=== PATIENT | female | born 1980 | race Caucasian/White ===

== ENCOUNTER 2021-08-12 10:26 | Emergency (ER) | payer BC, SELFPAY ==
--- NOTE | ~2021-08-12 | CT_ITS ---
EXAMINATION: CTA BRAIN/CAROTID DATE: 08/12/2021 14:30 INDICATION: Right arm weakness and numbness TECHNIQUE: Computed tomographic angiography (CTA) of the head and neck was performed with 100 mL Omni paque-350 intravenous contrast. Multiplanar reconstructions and maximum intensity projection 3D-recon structions of the carotid arteries and of the intracranial arteries were created by the technologist on a separate workstation. Precontrast CT of the head was also obtained. Automated exposure control and iterative reconstruction technique were employed.The dose-length product was 1565.98 mGy-cm. COMPARISON: None. FINDINGS: Carotid arteries: There is no evident plaque with 0% stenosis of the right and left carotid bulbs relative to normal di stal artery lumen diameter (NASCET criteria). Cervical soft tissues are unremarkable. Mild emphysema at the bilateral upper lung zones. Minimal to mild cervical spondylosis. Head: No acute intracranial hemorrhage, acute infarction or abnormal extra axial fluid collection. Ventricl es are normal and symmetric. No mass/mass effect. Mild mucosal thickening in the bilateral ethmoid si nuses. The orbits and mastoid air cells are normal. No abnormally enhancing brain lesions. Intracranial arteries There is no hemodynamically significant stenosis in the vertebral, basilar and internal carotid arter ies. Vertebral arteries are codominant. There are no aneurysms identified. Both A1 and P1 segments a re patent. Cerebral arterial arborization appears symmetric. IMPRESSION: 1. 0% stenosis of the left and right carotid bulbs relative to normal distal artery lumen diameter (N ASCET criteria). 2. No acute intracranial process and normal CT angiogram of the head. Reviewed, dictated and finalized at location A. IMPRESSION: 1. 0% stenosis of the left and right carotid bulbs relative to normal distal ar krista lumen diameter (NASCET criteria). 2. No acute intracranial process and normal CT angiogram of the head.
--- NOTE | ~2021-08-12 | XR_ITS ---
EXAMINATION: XR chest 2V DATE: 08/12/2021 14:37 INDICATION: Right arm weakness TECHNIQUE: PA and lateral views of the chest are obtained. COMPARISON: 03/15/2011 FINDINGS: The lungs are free of acute opacities. There is no pleural effusion or pneumothorax. The ca rdiomediastinal silhouette is normal. There is mild thoracic spondylosis. IMPRESSION: 1. No acute cardiopulmonary abnormality. Reviewed, dictated and finalized at location B.
[2021-08-12 10:34] VITALS: BP 138/86; PULSE 87; RESP 14; TEMP 36.5; O2SAT 100
[2021-08-12 11:53] VITALS: BP 135/86; PULSE 63; RESP 19; O2SAT 100
--- NOTE | 2021-08-12 13:16 | ECG_ITS ---
Measurements Intervals [place] Rate: 54 P: 11 ME: 155 QRS: -48 QRSD: 94 T: 52 QT: 411 QTc: 391 Interpretive Statements SINUS BRADYCARDIA LEFT ANTERIOR FASCICULAR BLOCK [QRS AXIS <= -45, QR IN I, RS IN II] CONSIDER PREVIOUS SEPTAL MYOCARDIAL INFARCTION , OLD NO PREVIOUS ECG AVAILABLE FOR COMPARISON Electronically Signed On 08-12-2021 15:53:31 CDT by Pramod Morel M.D.
--- NOTE | 2021-08-12 13:19 | ED.NEUROSD ---
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 Patient states she woke up this morning and noticed the right hand was not working correctly. Patient unable to grasp objects. Patient with limited movement to thumb, second digit, and fifth digit and limited movement to wrist. Patient denies headache, slurred speech, or any other neurological issues. Medical history significant for surgery to right arm, depression, and anxiety. States she last saw her physician within the last couple months. Related Data Allergies Allergy/AdvReac Type Severity Reaction Status Date / Time prochlorperazine Allergy Intermediate Muscle Verified 08/12/21 15:19 Spasms Review of Systems Review of Systems: CONSTITUTIONAL: Denies fever, chills, or sweats. EYES: Denies visual changes, redness, or discharge. ENT: Denies rhinorrhea, congestion, sore throat, or otalgia. CARDIOVASCULAR: Denies chest pain, palpitations, or edema. RESPIRATORY: Denies cough or dyspnea. GASTROINTESTINAL: Denies abdominal pain, nausea, vomiting, or diarrhea. GENITOURINARY: Denies dysuria or hematuria. SKIN: Denies rash or itching. MUSCULOSKELETAL: Denies back pain, joint pain, or myalgia. NEUROLOGIC: Denies headache, numbness, dizziness, or weakness. Right hand weakness with numbness and tingling. PSYCHIATRIC: Denies anxiety or depression. Exam Narrative: GENERAL: Well-appearing, well-nourished, and in no acute distress. HEAD: Normocephalic, atraumatic. EYES: PERRLA and EOMI. ENT: Nares clear, no rhinorrhea or epistaxis. Mucous membranes moist. Oropharynx without tonsillar hypertrophy exudate or other lesions. Bilateral TMs pearly spain nonbulging NECK: Supple. No adenopathy or masses. No carotid bruits or JVD CHEST: Clear to auscultation. No respiratory distress. No wheezes rales or rhonchi HEART: Regular rate and rhythm. No murmur heard. Normal peripheral pulses. ABDOMEN: Soft, nontender, nondistended, normal active bowel sounds. EXTREMITIES: Normal range of motion. No edema. SKIN: Warm, dry, no rash. NEURO: Decreased sensation to right hand. Inability to move third and fourth digit. Second and fifth digit with very limited ability to flex and extend extend. Thumb with limited mobility to right thumb. Pain with palpation to dorsal side of wrist. Alert and oriented x3. PSYCH: Normal mood and affect. Course Course Emergency Course: Dr. Reynolds consulted after CT results obtained. Dr. Reynolds recommends EMG and MRI. Okay for outpatient follow-up. Patient updated on plan of care. Patient upset that no definitive answer for her issues today has been given. Patient aware of follow-up and instructed to call and make an appointment. Vital Signs Vital signs: Vital Signs Temperature 36.5 C 08/12/21 10:34 Pulse Rate 87 08/12/21 10:34 Respiratory Rate 14 08/12/21 10:34 Blood Pressure 138/86 08/12/21 10:34 Pulse Oximetry 100 08/12/21 10:34 Temperature 36.5 C 08/12/21 10:34 Pulse Rate 63 08/12/21 11:53 Respiratory Rate 19 08/12/21 11:53 Blood Pressure 135/86 08/12/21 11:53 Pulse Oximetry 100 08/12/21 11:53 MDM - Neuro Symptoms/Deficit MDM Narrative Medical decision making narrative: HPI as noted. Work-up as noted. CT and x-ray as noted. Consult neurology. In agreement with plan for outpatient follow-up. Differential Diagnosis Differential diagnosis: Likely carpal tunnel syndrome, cerebrovascular accident and other (Nerve compression) Medical Records Attestation: I reviewed the patient's medical records. Lab Data Attestation: I reviewed the patient's lab results. Result diagrams: 08/12/21 13:42
[2021-08-12 13:54] LABS: Basophils Absolute Auto 0.1 K/mm3 (0.0-0.1); Basophils Percent Auto 1.1 % (0.2-1.2); Eosinophils Absolute Auto 0.1 K/mm3 (0-0.3); Eosinophils Percent Auto 1.6 % (0-4.4); Hemoglobin 13.9 g/dL (12.0-15.0); Immature Granulocyte Absolute 0.04 K/mm3 (0.00-0.031); Immature Granulocyte Percent A 0.5 % (0-0.5); Lymphocytes Absolute Auto 2.57 K/mm3 (0.9-3.2); Lymphocytes Percent Auto 28.9 % (18.3-44.2); Mean Corpuscular HGB Conc 33.9 g/dl (32-36); Mean Corpuscular Hemoglobin 30.3 pg (26-34); Mean Corpuscular Volume 89.5 fl (80-100); Mean Platelet Volume 8.4 fl (7.4-10.4); Monocytes Absolute Auto 0.5 K/mm3 (0.1-0.6); Monocytes Percent Auto 5.9 % (2.6-8.5); Neutrophils Absolute Auto 5.5 K/mm3 (1.3-6.7); Platelet Count Result 334 k/mm3 (150-375); Red Blood Count 4.58 M/mm3 (4.2-5.4); Red Cell Distribution Width 13.3 % (11.5-14.5); White Blood Count 8.9 K/mm3 (4.5-10.0)
[2021-08-12 14:00] LABS: Add Urine Microscopic? YES; Appearance Urine Clear (Clear); Bacteria Urine Trace /hpf; Bilirubin Urine Negative (Negative); Blood Urine 1+ (Negative); Color Urine Yellow (Yellow); Glucose Urine UA Negative (Negative); Ketones Urine Negative (Negative); Leukocyte Esterase Ur Negative LEU/UL (Negative); Mucus Urine Rare /lpf; Nitrate Urine Negative (Negative); Protein Urine Negative (Negative); RBC Urine 0-2 /hpf (0-2); Squamous Epithelial Cell Urine Few /hpf (Few); Urobilinogen Urine Negative mg/dL (<2.0); WBC Urine 0-3 /hpf
[2021-08-12 14:03] LABS: Alanine Aminotransferase 21 U/L (4-35); Albumin Level 4.4 g/dL (3.5-5.1); Alkaline Phosphatase 75 U/L (38-126); Anion Gap 7 mmol/L (8-16); Aspartate Amino Transferase 31 U/L (14-36); Bilirubin,Total < 0.1 mg/dL (0.2-1.3); Blood Urea Nitrogen 5 mg/dL (7-17); Calcium 8.8 mg/dL (8.4-10.2); Carbon Dioxide 25 mmol/L (22-30); Chloride 106 mmol/L (98-107); Estimated CRCL calculation 93 ml/min; Estimated Glomerular Filt Rate > 60; Glucose 85 mg/dL (65-110); Potassium 3.9 mmol/L (3.4-5.0); Sodium 138 mmol/L (137-145)
[2021-08-12 14:04] LABS: Specific Grav Ur 1.004 (1.001-1.035)
[2021-08-12 14:07] LABS: INR 1.1; Prothrombin Time 13.3 Seconds (11.1-14.7)
[2021-08-12] MEDS: LORazepam (*CRX) 1 MG TABLET PO (15:21)
[2021-08-12] MEDS: KETOROLAC 30 MG/ML VIAL (*BKC) IV PUSH (15:21)
--- NOTE | 2021-08-12 15:53 | PC.NURSE ---
pt asking to leave AMA, pt agreeable to be discharged with follow up. pt somewhat irritable about remaining in pain.
== END 2021-08-12 15:55 | disposition home or self-care (01) ==
PROVIDERS: Emergency Provider Nurse Practitioner Family; PCP Physician Assistant
DX: R20.0 Anesthesia of skin (principal); R20.2 Paresthesia of skin; M79.641 Pain in right hand; R00.1 Bradycardia, unspecified; I44.4 Left anterior fascicular block; R94.31 Abnormal electrocardiogram [ECG] [EKG]
CPT/HCPCS: 36415; 70496; 70498; 71046; 80053; 81001; 81025; 85025; 85610; 85730; 93005; 96374; 99284; A9270; J1885; Q9967

== ENCOUNTER 2021-08-15 08:53 | Outpatient (CLI) | payer BC, SELFPAY ==
--- NOTE | 2021-08-15 11:30 | NEURO_ITS ---
Impression: # Complains of waking in the morning with wrist drop. # Normal nerve conduction study and needle/EMG except decreased motor unit potentials in Ext Indicis, Ext Digitorum, and Abd Poll Long. # Suggestive of right radial nerve compression against the external humerus. Nerve Conduction Studies Anti Sensory Summary Table Stim Site NR Peak (ms) P-T Amp (?V) Site1 Site2 Delta-P (ms) Dist (cm) Angel (m/s) Right Median Anti Sensory (2-3nd Digit) Wrist 2.8 76.0 Wrist 2-3nd Digit 2.8 14.0 50 Wrist 2.7 61.8 Wrist 2-3nd Digit 2.8 14.0 50 Right Radial Anti Sensory (Base 1st Digit) Wrist 1.8 32.4 Wrist Base 1st Digit 1.8 0.0 Right Ulnar Anti Sensory (5th Digit) Wrist 2.2 25.9 Wrist 5th Digit 2.2 14.0 64 Motor Summary Table Stim Site NR Onset (ms) O-P Amp (mV) Site1 Site2 Delta-0 (ms) Dist (cm) Angel (m/s) Right Median Motor (Abd Poll Brev) Wrist 3.0 7.3 Elbow Wrist 4.5 27.0 60 Elbow 7.5 5.4 Right Ulnar Motor (Abd Dig Minimi) Wrist 2.6 4.5 A Elbow Wrist 4.5 28.0 62 A Elbow 7.1 3.6 F Wave Studies NR F-Lat (ms) L-R F-Lat (ms) Right Median (Mrkrs) (Abd Poll Brev) 25.56 Right Ulnar (Mrkrs) (Abd Dig Min) 24.77 EMG Side Muscle Nerve Root Ins Act Fibs Amp Dur Recrt Comment Right 1stDorInt Ulnar C8-T1 Nml Nml Nml Nml Nml Right Ext Indicis Radial (Post Int) C7-8 Nml Nml Nml Nml Reduced Right Ext Digitorum Radial (Post Int) C7-8 Nml Nml Nml Nml Reduced Right BrachioRad Radial C5-6 Nml Nml Nml Nml Nml Right PronatorTeres Median C6-7 Nml Nml Nml Nml Nml Right Abd Poll Brev Median C8-T1 Nml Nml Nml Nml Nml Right Abd Poll Long Radial (Post Int) C7-8 Nml Nml Nml Nml Reduced MTDD
== END 2021-08-15 08:54 | disposition home or self-care (01) ==
LOC: ANHNEURO 08:56
PROVIDERS: PCP Physician Assistant; Visit Provider Psychiatry & Neurology Neurology
DX: R53.1 Weakness (principal)
CPT/HCPCS: 95886; 95909

== ENCOUNTER 2022-04-11 11:12 | Emergency (ER) | payer BC, SELFPAY ==
--- NOTE | ~2022-04-11 | CT_ITS ---
EXAMINATION: CT lumbar spine wo con DATE: 04/11/2022 14:08 INDICATION: Low back pain radiating down the left leg. TECHNIQUE: Computed tomography (CT) of the lumbar spine was performed without intravenous contrast. A utomated exposure control and iterative reconstruction technique were employed. The dose-length produ ct was 559.34 mGy-cm. COMPARISON: None FINDINGS: There is an intrauterine device in expected position. There is 14 degrees dextroscoliosis o f thoracolumbar spine. There are Schmorl's nodes at multiple levels. There is mildly decreased disc h eight at L4-L5 and L5-S1. The following disc levels are specifically discussed: L1-L2: The disc does not extend beyond the endplate margin. There is mild bilateral facet joint osteo arthritis. There is no neural foraminal stenosis. There is no central canal stenosis. L2-L3: The disc does not extend beyond the endplate margin. There is mild bilateral facet joint osteo arthritis. There is no neural foraminal stenosis. There is no central canal stenosis. L3-L4: The disc is bulging. There is mild bilateral facet joint osteoarthritis. There is mild left ne ural foraminal stenosis. There is mild central canal stenosis. L4-L5: The disc is bulging. There is moderate right and severe left facet joint osteoarthritis. There is moderate bilateral neural foraminal stenosis. There is mild central canal stenosis. L5-S1: The disc is bulging. There is mild bilateral facet joint osteoarthritis. There is mild bilater al neural foraminal stenosis. There is mild central canal stenosis. IMPRESSION: 1. Moderate spondylosis at L4-L5 and mild spondylosis at other levels. 2. Thoracolumbar dextroscoliosis. Reviewed, dictated and finalized at location A. [employer]
[2022-04-11 11:16] VITALS: BP 125/88; PULSE 96; RESP 18; TEMP 36.6; O2SAT 100
--- NOTE | 2022-04-11 13:44 | ED.BACK ---
HPI - Back Pain/Injury General Chief Complaint: Back Pain/Injury Stated Complaint: back pain Time Seen by Provider: 04/11/22 13:25 Source: patient Mode of arrival: ambulatory Limitations: no limitations History of Present Illness HPI Narrative: This is a 41-year-old female who presents emergency department for low back pain. Ongoing over the last 4 days. No recent injuries or trauma. Reports she went to bend down on Thursday and felt like something popped in her back. Since she has had constant low back pain. Sometimes it radiates into her left leg. Worse with movement. She saw her chiropractor the last couple of days with some relief. Reports the pain was worse again today which prompted her to be seen. She has not taken anything for pain today. Denies saddle anesthesia, or focal numbness or weakness. Related Data Allergies Allergy/AdvReac Type Severity Reaction Status Date / Time prochlorperazine Allergy Intermediate Muscle Verified 08/13/21 15:27 Spasms Review of Systems Review of Systems: CONSTITUTIONAL: Denies fever SKIN: Denies rash MUSCULOSKELETAL: Reports back pain, joint pain, and myalgia. NEUROLOGIC: Denies numbness, or weakness. All systems reviewed & are unremarkable except as noted in HPI and below PMFSH Past Medical History Medical History (Updated 04/11/22 @ 15:14 by Kirstie Gilbert PA-C) No active medical problems Social History Social History (Updated 04/11/22 @ 13:47 by Kirstie Gilbert PA-C) Substance use: never Exam Narrative: GENERAL: Well-appearing, well-nourished, and in no acute distress HEAD: Normocephalic, atraumatic. EYES: EOMI. CHEST: Clear to auscultation. No respiratory distress. No wheezes rales or rhonchi HEART: Regular rate and rhythm. No murmur heard. Normal peripheral pulses. BACK: No midline spinal tenderness EXTREMITIES: Normal range of motion. No edema. SKIN: Warm, dry, no rash. NEURO: No focal deficits. Alert and oriented x3. Normal gait PSYCH: Normal mood and affect Course Vital Signs Vital signs: Vital Signs Temperature 97.8 F 04/11/22 11:16 Pulse Rate 96 04/11/22 11:16 Respiratory Rate 18 04/11/22 11:16 Blood Pressure 125/88 04/11/22 11:16 Pulse Oximetry 100 04/11/22 11:16 Oxygen Delivery Room Air 04/11/22 11:16 Temperature 97.8 F 04/11/22 11:16 Pulse Rate 96 04/11/22 11:16 Respiratory Rate 18 04/11/22 11:16 Blood Pressure 125/88 04/11/22 11:16 Pulse Oximetry 100 04/11/22 11:16 Oxygen Delivery Room Air 04/11/22 11:16 MDM - Back Pain/Injury MDM Narrative Medical decision making narrative: Patient presents to the ER for low back pain ongoing over the last couple of days. Her vitals are normal. She denies any neurologic symptoms. No recent injuries or trauma. She is neurologically intact. CT scan of her lumbar spine shows moderate spondylosis at L4/L5. She was given a dose of Tylenol and Valium with modest relief. Did not wish to stay for any further treatment. Was instructed to have close follow up with her primary provider and will be given follow up with neurosurgery Imaging Data Radiologist's impression: ITS Impressions Lumbar Spine CT 04/11/22 14:12 IMPRESSION: 1. Moderate spondylosis at L4-L5 and mild spondylosis at other levels. 2. Thoracolumbar dextroscoliosis. Critical Care Time Critical Care Time Critical Care Time: No Discharge Plan Discharge Clinical Impression: Lumbar radiculopathy Patient Disposition: Home, Self-Care Condition: Stable Instructions: Lumbar Radiculopathy (ED) Additional Instructions: Return to the ER if you experience weakness, numbness, bowel/bladder incontinence, or any other symptoms that are concerning to you Rest, use ice/heat, take anti-inflammatories (Aleve, Ibuprofen, Naproxen, etc) or Tylenol as needed for pain as well as muscle relaxer (Flexeril) as needed for pain. Muscle relaxers can make you drowsy, do not drive if you take
[2022-04-11] MEDS: ACETAMINOPHEN 500 MG TABLET 1000 MG PO (13:50)
[2022-04-11] MEDS: diazePAM INJ (*CRX) 10 MG/2 ML SYRINGE 5 MG IM (13:50)
--- NOTE | 2022-04-11 13:54 | PC.NURSE ---
Patient reports she is in too much pain to provide urine sample at this time. CT notified.
[2022-04-11] MEDS: oxyCODONE HCL (*CRX) 5 MG TAB IR PO (15:44)
== END 2022-04-11 15:52 | disposition home or self-care (01) ==
PROVIDERS: Emergency Provider Emergency Medicine; PCP Physician Assistant
DX: M54.16 Radiculopathy, lumbar region (principal)
CPT/HCPCS: 72131; 96372; 99284; A9270; J3360

== ENCOUNTER 2023-05-26 12:14 | Outpatient (CLI) | payer BC, SELFPAY ==
--- NOTE | ~2023-05-26 | MR_ITS ---
MRI of the lumbar spine Clinical History: Back pain Technique: Axial T2-weighted images, and sagittal T1-weighted, T2-weighted, and T2 fat-sat images wer e acquired. Findings: There is no fracture or subluxation of the lumbar spine. Vertebral bodies maintain normal h eight and alignment. No suspicious bone no significant abnormality seen. At L1-L2, L2-L3, L3-L4, there is no disc bulge or herniation. There are minimal facet joint degenerat alvin changes at these levels. No spinal canal stenosis or neural foraminal narrowing at these levels. At L4-L5, there is diffuse disc bulge and advanced facet arthropathy. No moris central canal stenosis . There is moderate left neural foraminal narrowing, and advanced right neural foraminal narrowing. At L5-S1, there is mild disc bulge with mild facet arthropathy. No central canal stenosis. There is m ild right neural foraminal narrowing. Left neural foramen preserved. Paravertebral soft tissues are unremarkable. Impression: Moderate to advanced degenerative spondylosis at L4-L5. Mild degenerative change in the remainder of the lumbar spine. Reviewed, dictated and finalized at [facility]. ID NATURAL GAS PLANT OPERATOR Impression: Moderate to advanced degenerative spondylosis at L4-L5. Mild degenerative change in the remainder of the lumbar spine.
== END 2023-05-26 12:15 ==
DX: M54.41 Lumbago with sciatica, right side (principal); M47.896 Other spondylosis, lumbar region
CPT/HCPCS: 72148

== ENCOUNTER 2024-08-26 09:01 | Outpatient (CLI) | payer BC, SELFPAY ==
--- OUTSIDE RECORDS SUMMARY | 2024-08-26 09:15 | XMS_ITS | Encounter Summary ---
Author Organization [facility] Address [facility] [place] [address] Care Team Providers Care Timber Framer Helper Name Role Phone Hattie Ivory [facility] Primary Care Provider + Encounter Details Date Type Department Care Team (Late st Contact Info) Description 01/18/2024 [employer] Message Enc [facility] Medical Group Family & Internal Medicine [facility] [address] [place] [address] Mary, [facility] Provider Roge Social History Tobacco Use Types Packs/Day Years Used Date Smoking Tobacco: Every Day Cigarettes 1.5 10 Passive Smoke Exposure: Current Smokeless Tobacco: Never Alcohol Use Standard Drinks/Week Comments Yes 10 (1 standard drink = 0.6 oz pu re alcohol) Usually on weekends AUDIT-C Answer Date Recorded Frequency of Alcohol Consumption Never 12/16/2018 Average Number of Drinks Not on file 019 Frequency of Binge Drinking Not on file 11/23 PHQ-2 Answer Date Recorded Patient Health Questionnaire-2 Score 3 12/24/2023 Comments No Sex and Gender Information Value Date Recorded Sex Assigned at Not on file Legal Sex Female 5:23 PM CDT Gender Identity Female 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 * Adriana Johnson RN - 01/19/2024 10:39 AM CDT FYI documented in this encounter Plan of Treatment Not on file documented as of this encounter Visit Diagnoses Not on filedocumented in this encounter Additional Health Concerns Assessment Noted Time PHQ-9 Depression Total Score: 12 024 7:46 AM CDT documented as of this encounter Care Teams Timber Framer Helper Relationship Specialty Start Date End Date Hattie Ivory FNP-BC [address], [address] [place] [address] PCP - General Nurse Practitioner Family 03/23/23 documented as of this encounter
--- OUTSIDE RECORDS SUMMARY | 2024-08-26 09:15 | XMS_ITS | Encounter Summary ---
Author Organization [facility] Address [facility] [place] [address] Care Team Providers Care Major Case Detective Name Role Phone Holli Cedeño Primary Care Provider [phone] Hattie Ivory [facility] Primary Care Provider + Encounter Details Date Type Department Care Team (Late st Contact Info) Description 04/12/2022 Framed Datat Message Enc [facility] Medical Group Family & Internal Medicine [facility] [address] [place] [address] Holli Cedeño [place] [id number] [place] [address] [phone] bulging disks Social History Tobacco Use Types Packs/Day Years Used Date Smoking Tobacco: Every Day Cigarettes 1.5 10 Smokeless Tobacco: Never Alcohol Use Standard Drinks/Week Comments Yes 10 (1 standard drink = 0.6 oz pu re alcohol) Usually on weekends AUDIT-C Answer Date Recorded Frequency of Alcohol Consumption Never 12/16/2018 Average Number of Drinks Not on file 019 Frequency of Binge Drinking Not on file 11/23 PHQ-2 Answer Date Recorded PHQ-2 Score - If the patient scores above 3, please move on to questions 3-9 1 02/11/2022 Comments No Sex and Gender Information Value Date Recorded Sex Assigned at Not on file Legal Sex Female 5:23 PM CDT Gender Identity Female 06/17/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 No / Unsure 04/15/2022 8:04 AM IMPLANT POLISHER documented as of this encounter Plan of Treatment Not on file documented as of this encounter Visit Diagnoses Not on filedocumented in this encounter Additional Health Concerns Infection Onset Date Last Indicated Resolved Time COVID-19 Rule Out 07/24/2023 07/24/2023 07/24/2023 9:15 AM IMPLANT POLISHER Assessment Noted Time PHQ-9 Depression Total Score: 6 02/12/20 2:48 PM CDT documented as of this encounter Care Teams Major Case Detective Relationship Specialty Start Date [place] [address] [place] [address] PCP - General PHYSICIAN PORCELAIN ENAMEL SPRAYER 10/05/19 03/22/23 Hattie Ivory, NEURO PSYCH SALES SPECIALIST- [address], [address] [place] [address] PCP - General Nurse Practitioner Family 03/23/23 documented as of this encounter
--- OUTSIDE RECORDS SUMMARY | 2024-08-26 09:15 | XMS_ITS | Encounter Summary ---
Author Organization [facility] Address [facility] [place] [address] Care Team Providers Care Housekeeping Room Inspector Name Role Phone Holli Cedeño Primary Care Provider [phone] Hattie Ivory [facility] Primary Care Provider + Encounter Details Date Type Department Care Team (Late st Contact Info) Description 11/14/2022 [place] Message Enc [facility] Medical Group Family & Internal Medicine [facility] [address] [place] [address] Holli Cedeño [place] [id number] [place] [address] [phone] Pipe Line Gauger Social History Tobacco Use Types Packs/Day Years [...] Answer Date Recorded Patient Health Questionnaire-2 Score 0 08/12/2022 Comments No Sex and Gender Information Value Date Recorded Sex Assigned at Not on file Legal Sex Female 5:23 PM CDT Gender Identity Female 06/17/2021 1:51 PM CORNCOB PIPES ASSEMBLER Sexual Orientation Straight 06/17/2021 1: 51 PM CORNCOB PIPES ASSEMBLER COVID-19 Exposure Response Date Recorded In the last 10 days, have yo u been in contact with someone who was confirmed or suspected to have Coronavirus/COVID-19? No / Unsure 10/29/2022 9:08 AM CDT documented as of this encounter Plan of Treatment Not on file documented as of this encounter Visit Diagnoses Not on filedocumented in this encounter Additional Health Concerns Infection Onset Date Last Indicated Resolved Time COVID-19 Rule Out 07/24/2023 07/24/2023 07/24/2023 9:15 AM CORNCOB PIPES ASSEMBLER Assessment Noted Time PHQ-9 Depression Total Score: 6 02/12/20 22 2:48 PM CDT documented as of this encounter Care Teams Housekeeping Room Inspector Relationship Specialty Start Date [place] Date [place] [address] [place] [address] PCP - General PHYSICIAN [employer] FOOTBALL COACH 10/05/19 03/22/23 Hattie Ivory, HEARING THERAPIST- [address], [address] [place], [place] [id number] PCP - General Nurse Practitioner Family 03/23/23 documented as of this encounter
--- OUTSIDE RECORDS SUMMARY | 2024-08-26 09:15 | XMS_ITS | Encounter Summary ---
Author Organization [facility] Address [facility] [place] [address] Care Team Providers Care Human Service Coordinator Name Role Phone Holli Cedeño Primary Care Provider [phone] Hattie Ivory [facility] Primary Care Provider + Encounter Details Date Type Department Care Team (Late st Contact Info) Description 01/27/2022 My[employer] Message Enc [facility] Medical Group Family & Internal Medicine [facility] [address] [place] [address] Holli Cedeño [place] [phone] [place] [address] [phone] Mammogram results Social History Tobacco Use Types Packs/Day Years [...] 3, please move on to questions 3-9 4 12/11/2021 Comments No Sex and Gender Information Value Date Recorded Sex Assigned at Not on file Legal Sex Female 5:23 PM CDT Gender Identity Female 06/17/2021 1:51 PM PERMIT AGENT Sexual Orientation Straight 06/17/2021 1: 51 PM PERMIT AGENT COVID-19 Exposure Response Date Recorded In the last 10 days, have yo u been in contact with someone who was confirmed or suspected to have Coronavirus/COVID-19? No / Unsure 01/15/2022 2:40 PM CDT documented as of this encounter Plan of Treatment Not on file documented as of this encounter Visit Diagnoses Not on filedocumented in this encounter Additional Health Concerns Infection Onset Date Last Indicated Resolved Time COVID-19 Rule Out 07/24/2023 07/24/2023 07/24/2023 9:15 AM PERMIT AGENT Assessment Noted Time PHQ-9 Depression Total Score: 14 022 1:49 PM CDT documented as of this encounter Care Teams Human Service Coordinator Relationship Specialty Start Date [place] Hol[place] [address] [place] [address] PCP - General PHYSICIAN BUTTON BROACHER 10/05/19 03/22/23 Hattie Ivory, TELEPHONE MESSENGER- [address], [address] [place] [address] PCP - General Nurse Practitioner Family 03/23/23 documented as of this encounter
--- OUTSIDE RECORDS SUMMARY | 2024-08-26 09:15 | XMS_ITS | Encounter Summary ---
Author Organization [facility] Address [facility] [place] [address] Care Team Providers Care Door Frame Builder Name Role Phone Holli Cedeño Primary Care Provider [phone] Hattie Ivory [facility] Primary Care Provider + Encounter Details Date Type Department Care Team (Late st Contact Info) Description 02/24/2022 Any+Times Message Enc [facility] Medical Group Family & Internal Medicine [address] [address] [facility] Social History Tobacco Use Types Packs/Day Years [...] CDT Gender Identity Female 06/17/2021 1:51 PM LANDSCAPE PHOTOGRAPHER Sexual Orientation Straight 06/17/2021 1: 51 PM LANDSCAPE PHOTOGRAPHER COVID-19 Exposure Response Date Recorded In the last 10 days, have yo u been in contact with someone who was confirmed or suspected to have Coronavirus/COVID-19? No / Unsure 02/11/2022 2:29 PM CDT documented as of this encounter Plan of Treatment Not on file documented as of this encounter Visit Diagnoses Not on filedocumented in this encounter Additional Health Concerns Infection Onset Date Last Indicated Resolved Time COVID-19 Rule Out 07/24/2023 07/24/2023 07/24/2023 9:15 AM LANDSCAPE PHOTOGRAPHER Assessment Noted Time PHQ-9 Depression Total Score: 6 02/12/20 2:48 PM CDT documented as of this encounter Care Teams Door Frame Builder Relationship Specialty Start Date [place] Date Holli [place] [address] [place] [address] PCP - General PHYSICIAN BRIDGE CRANE OPERATOR 10/05/19 03/22/23 Hattie Ivory, CASING INSPECTOR- [address], [address] [place] [address] PCP - General Nurse Practitioner Family 03/23/23 documented as of this encounter
--- OUTSIDE RECORDS SUMMARY | 2024-08-26 09:15 | XMS_ITS | Clinical Summary ---
Author Organization [facility] Address [address] [place] [address] Care Team Providers Care Reverser Name Role Phone Jane Abraham MD Primary Care Provider [phone] Source Comments [facility],non-owned Affiliates and Associated Physician Practices is amultiple site organization consisting of ambulatory clinics and hospital sitesin [place], [place], [place] and [place]. This disclosure is being madepursuant to the Care Everywhere program and may not contain all information available regarding this patient. Last updated 18.[facility] Allergies No known active allergies Medications * Be aware that medications may not be up to date on this document. Alwaysverify current medications with the patient. Medication Sig Dispensed Refills Start Date End Date Status LORazepam (ATIVAN) 1 MG tablet Take 1 mg by mouth every 8 hours as needed. Active Social History Tobacco Use Types Packs/Day Years Used Date Smoking Tobacco: Every Day Cigarettes Tobacco Cessation:Ready to Q uit: No; Counseling Given: Yes Sex and Gender Information Value Date Recorded Sex Assigned at Not on file Gender Identity Not on file Sexual Orientation Not on file Last Filed Vital Signs Vital Sign Reading Time Taken Comments Blood Pressure 98/56 04/24/2011 11:12 AM BOBCAT OPERATOR Pulse 47 04/24/2011 11:12 AM BOBCAT OPERATOR Temperature 37 C (98.6 F) 04/24/2011 9:28 AM BOBCAT OPERATOR Respiratory Rate 19 04/24/2011 11:12 AM BOBCAT OPERATOR Oxygen Saturation 99% 04/24/2011 11:12 AM BOBCAT OPERATOR Inhaled Oxygen Concentration - - Weight 56.7 kg (125 lb) 04/24/2011 9:26 AM BOBCAT OPERATOR Height 166.4 cm (5' 5.5 ) 04/24/2011 9:26 AM BOBCAT OPERATOR Body Mass Index 20.48 04/24/2011 9:26 AM BOBCAT OPERATOR Plan of Treatment Health Maintenance Due Date Last Done Comments COLOGUARD (AGES 45-75) - COL ON CA SCREENING 1978 COLON MONITORING 1978 COLONOSCOPY - COLON CA SCREENING 1978 CT COLONOGRAPHY - COLON CA SCREENING 1978 Colorectal Cancer Screening 1978 FIT - COLON CA SCREENING 1978 FLEX SIG - COLON CA SCREENING 1978 LIPID TESTING 1978 MAMMOGRAM 1978 PAP SMEAR 1978 HIV SCREENING 1993 HEPATITIS C SCREENING 09/11/1996 DTAP/TDAP/TD VACCINES (1 - Tdap) 1997 HEPATITIS B VACCINE (1 of 3 - 19+ 3-dose series) 1997 COVID-19 VACCINE (1 - 2023-2 5 season) 2024 DEPRESSION SCREENING 05/25/2024 INFLUENZA VACCINE (Season Ended) 2025 ZOSTER VACCINE (1 of 2) 2028 HIB VACCINE Aged Out No longer eligi ble based on patient's age to complete this topic HPV VACCINE Aged Out No longer eligi ble based on patient's age to complete this topic MENINGOCOCCAL (Group B) VACC INE SHARED DECISION-MAKING Aged Out No longer eligibl e based on patient's age to complete this topic MENINGOCOCCAL GROUPS A/C/Y/W VACCINE Aged Out No longer eligible b ased on patient's age to complete this topic PNEUMOCOCCAL VACCINE Aged Out No long er eligible based on patient's age to complete this topic Care Teams Reverser Relationship Specialty Start Date End Date Jane Abraham MD [address] [place] [address] [phone] PCP - General 04/24/11
--- OUTSIDE RECORDS SUMMARY | 2024-08-26 09:15 | XMS_ITS | Encounter Summary ---
Author Organization [facility] Address [facility] [place] [address] Care Team Providers Care Yard Goods Salesperson Name Role Phone Hattie Ivory [facility] Primary Care Provider + Encounter Details Date Type Department Care Team (Late st Contact Info) Description 08/16/2023 plista Message [employer] [facility] Medical Group Family & Internal Medicine [facility] [address] [place] [address] [place] [address] [place] [address] Anxiety meds. Social History Tobacco Use Types Packs/Day Years [...] Date Recorded Patient Health Questionnaire-2 Score 0 07/24/2023 Comments No Sex and Gender Information Value Date Recorded Sex Assigned at Not on file Legal Sex Female 5:23 PM CDT Gender Identity Female 06/17/2021 1:51 PM PRODUCE ASSOCIATE Sexual Orientation Straight 06/17/2021 1: 51 PM PRODUCE ASSOCIATE documented as of this encounter Plan of Treatment Not on file documented as of this encounter Visit Diagnoses Not on filedocumented in this encounter Additional Health Concerns Assessment Noted Time PHQ-9 Depression Total Score: 7 05/13/20 23 9:31 AM PRODUCE ASSOCIATE documented as of this encounter Care Teams Yard Goods Salesperson Relationship Specialty Start Date End Date Hattie Ivory, SPORTS MEDICINE COORDINATOR- [address], [address] [place] [address] PCP - General Nurse Practitioner Family 03/23/23 documented as of this encounter
--- OUTSIDE RECORDS SUMMARY | 2024-08-26 09:15 | XMS_ITS | Encounter Summary ---
Author Organization [facility] Address [facility] [place] [address] Care Team Providers Care Seo Marketing Specialist Name Role Phone Holli Cedeño Primary Care Provider [phone] Hattie Ivory [facility] Primary Care Provider + Encounter Details Date Type Department Care Team (Late st Contact Info) Description 06/17/2021 [employer]iot Message Enc [facility] Medical Group Family & Internal Medicine [facility] [address] [place] [address] Holli Cedeño [place] [phone] [place] [address] [phone] Possible blood clot Social History Tobacco Use Types Packs/Day Years Used Date Smoking Tobacco: Every Day Cigarettes Smokeless Tobacco: Never Alcohol Use Standard Drinks/Week Comments No 0 (1 standard drink = 0.6 oz pur e alcohol) AUDIT-C Answer Date Recorded Frequency of Alcohol Consumption Never 12/16/2018 Average Number of Drinks Not on file 019 Frequency of Binge Drinking Not on file 11/23 PHQ-2 Answer Date Recorded PHQ-2 Score - If the patient scores above 3, please move on to questions 3-9 0 04/04/2021 Comments No Sex and Gender Information Value Date Recorded Sex Assigned at Not on file Legal Sex Female 5:23 PM CDT Gender Identity Female 06/17/2021 1:51 PM CREW FOREMAN Sexual Orientation Straight 06/17/2021 1: 51 PM CREW FOREMAN COVID-19 Exposure Response Date Recorded In the last month, have you been in contact with someone who was confirmed or suspected to have Coronavirus / COVID-19? No / Unsure 06/17/2021 4:04 PM CREW FOREMAN documented as of this encounter Progress Notes * Dee Rosa MA - 06/17/2021 3:27 PM CST Offered appointment to patient today, patient is unable to get anyone to cover her shift today. Patient aware to use ER if symptoms get worse. FOREMAN documented in this encounter Plan of Treatment Not on file documented as of this encounter Visit Diagnoses Not on filedocumented in this encounter Additional Health Concerns Infection Onset Date Last Indicated Resolved Time COVID-19 Rule Out 10/11/2021 10/11/2021 10/11/2021 3:16 PM CDT COVID-19 Rule Out 07/24/2023 07/24/2023 07/24/2023 9:15 AM CREW FOREMAN Assessment Noted Time PHQ-9 Depression Total Score: 0 04/04/20 21 7:48 AM CREW FOREMAN documented as of this encounter Care Teams Seo Marketing Specialist Relationship Specialty Start [place] Date [place] [address] [place] [address] PCP - General PHYSICIAN CREOSOTING ENGINEER 10/05/19 03/22/23 Hattie Ivory, PROCESS AUTOMATION ENGINEER- [address], [address] [place] [address] PCP - General Nurse Practitioner Family 03/23/23 documented as of this encounter
--- OUTSIDE RECORDS SUMMARY | 2024-08-26 09:15 | XMS_ITS | Encounter Summary ---
Author Organization [facility] Address [facility] [place] [address] Care Team Providers Care Cloth Trimmer Hand Name Role Phone Holli Cedeño Primary Care Provider [phone] Hattie Ivory [facility] Primary Care Provider + Encounter Details Date Type Department Care Team (Late st Contact Info) Description 02/11/2022 CNS Responset Message Enc [facility] Medical Group Family & Internal Medicine [facility] [address] [place] [address] Holli Cedeño [place] [phone] [place] [address] [phone] Meds Social History Tobacco Use Types Packs/Day Years [...] CDT Gender Identity Female 06/17/2021 1:51 PM KEG FILLER Sexual Orientation Straight 06/17/2021 1: 51 PM KEG FILLER COVID-19 Exposure Response Date Recorded In the last 10 days, have yo u been in contact with someone who was confirmed or suspected to have Coronavirus/COVID-19? No / Unsure 02/11/2022 2:29 PM CDT documented as of this encounter Progress Notes * Lorraine Garces LPN - 02/11/2022 10:15 AM CDT Pt called appt made with Dr. Fernandez for 02/11/22 documented in this encounter Plan of Treatment Not on file documented as of this encounter Visit Diagnoses Not on filedocumented in this encounter Additional Health Concerns Infection Onset Date Last Indicated Resolved Time COVID-19 Rule Out 07/24/2023 07/24/2023 07/24/2023 9:15 AM KEG FILLER Assessment Noted Time PHQ-9 Depression Total Score: 6 02/12/20 2:48 PM CDT documented as of this encounter Care Teams Cloth Trimmer Hand Relationship Specialty Start Date [place] Date [place] [address] [place] [address] PCP - General PHYSICIAN PROCTOLOGIST 10/05/19 03/22/23 Hattie Ivory, SHERLYN- [address], [address] [place] [address] PCP - General Nurse Practitioner Family 03/23/23 documented as of this encounter
--- OUTSIDE RECORDS SUMMARY | 2024-08-26 09:15 | XMS_ITS | Clinical Summary ---
Author Organization [facility] Address [facility] [place] [address] Care Team Providers Care Evp And Chief Operating Officer Name Role Phone Kayden Hankins [facility] Primary Care Provider + Allergies Active Allergy Reactions Criticality Noted Date Comments Prochlorperazine Dystonia Medium 12/16/2018 Medications levonorgestrel (MIRENA, 52 MG,) 20 MCG/24HR IUD 1 Intra Uterine Device by Intrauterine route once. Active albuterol sulfate HFA 108 (90 Base) MCG/ACT inhalerIndicat ions:Wheezing Inhale 2 puffs into the lungs every 6 (six) hours as needed for Wheezing. 18 g 5 01/28/20 24 Active azelastine (ASTELIN) 0.1 % nasal sprayIndicatio ns:Allergic rhinitis, unspecified seasonality, unspecified trigger,Acute recurrent maxillary sinusitis,Bron chitis 1-2 sprays per nostril, once or twice daily. 30 mL 2 01/28/20 24 Active amitriptyline (ELAVIL) 100 MG tabletIndicati ons:Psychophys iological insomnia Take 1 tablet (100 mg total) by mouth nightly at bedtime. 90 tablet 1 08/09/19 25 Active LORazepam (ATIVAN) 1 MG tabletIndicati ons:Generalize d anxiety disorder,Episo de of recurrent major depressive disorder, unspecified depression episode severity Take 1 tablet (1 mg total) by mouth every 8 (eight) hours as needed for Anxiety (Insomnia). FOR ANXIETY 30 tablet 2 08/09/19 25 Active montelukast (SINGULAIR) 10 MG tabletIndicati ons:Allergic rhinitis, unspecified seasonality, unspecified trigger Take 1 tablet (10 mg total) by mouth nightly at bedtime. at bedtime 90 tablet 3 08/09/19 25 Active busPIRone (BUSPAR) 15 MG tabletIndicati ons:Episode of recurrent major depressive disorder, unspecified depression episode severity Take 1 tablet by mouth twice daily 180 tablet 08/17/19 25 Active gabapentin (NEURONTIN) 300 MG capsule Take 1 capsule (300 mg total) by mouth 3 (three) times daily. 07/09/19 24 2024 Discontinued(P t. elected to discontinue med) LORazepam (ATIVAN) 1 MG tabletIndicati ons:Generalize d anxiety disorder,Episo de of recurrent major depressive disorder, unspecified depression episode severity Take 1 tablet (1 mg total) by mouth every 8 (eight) hours as needed. FOR ANXIETY 30 tablet 2 01/28/20 24 2024 Discontinued(R eorder) amitriptyline (ELAVIL) 50 MG tabletIndicati ons:Generalize d anxiety disorder,Psych ophysiological insomnia,Episo de of recurrent major depressive disorder, unspecified depression episode severity TAKE 1 TABLET BY MOUTH NIGHTLY AT BEDTIME 30 tablet 5 04/22/20 24 2024 Discontinued(D ose adjustment) montelukast (SINGULAIR) 10 MG tabletIndicati ons:Allergic rhinitis, unspecified seasonality, unspecified trigger Take 1 tablet (10 mg total) by mouth nightly at bedtime. at bedtime 30 tablet 5 04/22/20 24 2024 Discontinued(R eorder) busPIRone (BUSPAR) 15 MG tabletIndicati ons:Episode of recurrent major depressive disorder, unspecified depression episode severity Take 1 tablet by mouth twice daily 180 tablet 05/23/20 24 2024 Discontinued Active Problems Problem Noted Date Diagnosed Date Generalized anxiety disorder 01/27/2024 Psychophysiological insomnia 01/27/2024 Allergic rhinitis, unspecifi ed seasonality, unspecified trigger 01/27/2024 Low back pain with right-sided sciatica 05/14/20 23 History of abnormal cervical Papanicolaou smear 05/03/2023 Episode of recurrent major d epressive disorder, unspecified depression episode severity 12/21/2019 Patellofemoral pain syndrome 02/19/2015 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 Overview (08/31/2023): Infertility, female, associated with anovulation;Recorded Elsewhere: No Location: [facility] Source: EHR Chronic: N Practice ID: [id number] Billable Time: 04:00:00 PM Female infertility of tubal origin;Recorded Elsewhere: No Location: [facility] Source: EHR Chronic: N Practice ID: [id number] Billable Time: 09:00:00 AM Metrorrhagia 08/03/2012 Dyspareunia 06/28/2012 Menopausal symptom 06/27/2012 Overview (08/31/2023): Menopausal or female climacteric states;Recorded Elsewhere: No Location: [facility] Source: EHR Chronic: N Practice ID: [id number] Billable Time: 04:00:00 PM Other specified cardiac dysrhythmias 04/03/2011 Syncope and collapse 04/03/2011 Atypical squamous cells of u ndetermined significance (ASCUS) on Papanicolaou smear of cervix 10/14/2010 Resolved Problems Problem Noted Date Diagnosed Date Resolved Date Encounter for screening for malignant neoplasm of rectum 11/03/2018 09/10/2020 Pelvic and perineal pain 10/07/201705/2023 test negative 08/03/2012 08/0 05/2023 Screening for malignant neoplasm of cervix 08/27/2011 09/10/2020 Ill-defined intestinal infection 07/24/2011 12/24/2023 Encounters Date Type Department Care Team Description 08/08/2024 3:00 PM CDT Office Visit [facility] Medical Group Family & Internal Medicine [address] [address] Rachael Reagan NP Follow Up (Medication management); Fall (Patient had a fall 3 weeks and landed on her right hip. Still having pain and swelling ) 08/08/2024 Travel from Last 3 Months Immunizations Name Administration Dates Next Due Fluzone Adult - >Age 3 (Pref illed Syringe) 07/11/2020(Deferred: Patient Refused) [employer] ([email or web address]) COVID-19 AD26 VACCINE 0.5 ML IM SUSP 03/20/2021 Tdap (Adacel) 12/21/2019 Family History Medical History Relation Comments Depression Daughter 1 Depression Daughter 2 Arthritis Father Cancer Maternal Grandfather Cancer Maternal Grandmother Arthritis Mother Breast Cancer Neg Hx Relation Status Comments Daughter 1 Daughter 2 Father Maternal Grandfather Maternal Grandmother Mother Social History Tobacco Use Types Packs/Day Years Used Date Smoking Tobacco: Every Day Cigarettes 1.5 10 Passive Smoke Exposure: Current Smokeless Tobacco: Never Tobacco Cessation:Ready to Q uit: No; Counseling Given: Yes Alcohol Use Standard Drinks/Week Comments Yes 10 [...] CDT Gender Identity Female 06/17/2021 1:51 PM TETRYL BLENDER OPERATOR Sexual Orientation Straight 06/17/2021 1: 51 PM TETRYL BLENDER OPERATOR Last Filed Vital Signs Vital Sign Reading Time Taken Comments Blood Pressure 119/76 08/08/2024 3:05 PM CDT Pulse 84 08/08/2024 3:05 PM CDT Temperature 36.6 C (97.9 F) 08/08/2024 3:05 PM CDT Respiratory Rate 18 08/08/2024 3:05 PM CDT Oxygen Saturation 99% 08/08/2024 3:05 PM CDT Inhaled Oxygen Concentration - - Weight 85.1 kg (187 lb 9.6 oz) 08/08/2024 3:05 P M CDT Height 165.1 cm (5' 5 ) 08/08/2024 3:05 PM CDT Body Mass Index 31.22 08/08/2024 3:05 PM CDT Plan of Treatment Health Maintenance Due Date Last Done Comments Colorectal Cancer Screening Colonoscopy (10 Years) 1978 Annual Physical 1981 Hepatitis C 1996 Hepatitis B Vaccines (1 of 3 - 19+ 3-dose series) 1997 COVID-19 Vaccine (2 - season) 2024 03/20/2021 Influenza Adult (#1) 2024 PHQ-2 (Physician [facility] [place]) 05/25/2024 12/24/2023 Mammogram Screening 03/08/2026 03/08/2024, 01/15/2022, 11/07/2019, Additional history exists Cervical Cancer Screening Pap Smear (Age 30 to 64) Every 3 Years 05/16/2027 05/16/2024, 05/04/2023, 05/04/2023, Additional history exists Cervical Cancer Screening Pap with HPV Testing (Age 30 to 64) Every 5 Years 05/16/2029 05/16/2024, 05/04/2023, 05/04/2023, Additional history exists Cervical Cancer Screening with HPV 05/16/2029 DTaP, Tdap and Td Vaccines (2 - Td or Tdap) 12/20/2029 12/21/2019 Pneumococcal Vaccine: Pediatrics (0 to 5 Years) and At-Risk Patients (6 to 64 Years) (1 of 2 - PCV) 12/11/2041 Postponed from 1984 (Future Appointment) HPV Vaccines Aged Out No longer eligi ble based on patient's age to complete this topic Meningococcal B Vaccine Aged Out No l onger eligible based on patient's age to complete this topic Meningococcal Vaccine Aged Out No will reema eligible based on patient's age to complete this topic RSV Immunizations Under 20 Months Aged Out No longer eligible based on patient's age to complete this topic Procedures Procedure Name Priority Date/Time Associated Diagnosis Comments MG SCREENING W DAFNE DEVEN DIGI Routine 03/08/2024 3:39 PM CDT Encounter for screening mammogram for malignant neoplasm of breast OUTSIDE CYTOPATH CERV/VAG INTERPRET (PAP) Routine 08/29/2020 from Last 3 Months or Most Recently Relevant to Health Maintenance Results * MG SCREENING W DAFNE DEVEN DIGI (03/08/2024 3:39 PM CDT) Anatomical Region Laterality Modality Breast Bilateral Mammography 03/08/2024 4:15 PM CDT Impressions 03/08/2024 4:18 PM CDT ===== IMPRESSION: ===== 1. Stable mammographic appearance with no new findings to suggest malignancy in either breast. Assessment: ACR BI-RADS 1 - NEGATIVE Recommendation: 1:Routine Screening Bilateral Comments: Ordered By: KAYDEN HANKINS Interpreted By: Renato Shipley, 03/08/2024 4:15 PM Narrative 03/08/2024 4:18 PM CDT [facility] [address] [place] [address] EXAMINATION: Digital bilateral screening mammogram with 3-D tomosynthesis EXAM DATE/TIME: 03/08/2024 2:32 PM REASON FOR EXAM: breast cancer screening COMPARISON: 11/07/2019. 01/15/2022 Technique: Digital screening mammography of both breasts was performed in addition to 3-D Tomosynthesis technique. This study was read with the assistance of a computer-aided detection system. Tissue density: The breasts are almost entirely fatty. Findings: There is no new focal asymmetry, dominant mass lesion, area of skin thickening, or cluster of suspicious appearing calcifications in either breast to suggest malignancy. Kayden Hankins ELASTIC ATTACHER OVERLOCK-BC MAMMO Final Re sult * PAP SMEAR WITH HPV (08/29/2020) 08/29/2020 us Documents Scanned SCANNING Final Result [facility] ONBASE from Last 3 Months or Most Recently Relevant to Health Maintenance Insurance [facility] BLUE SHIELD Care Teams Evp And Chief Operating Officer Relationship Specialty Start Date End Date Kayden Hankins, ELASTIC ATTACHER OVERLOCK- [address], [address] [place] [address] PCP - General Nurse Practitioner Family 03/23/23
--- OUTSIDE RECORDS SUMMARY | 2024-08-26 09:15 | XMS_ITS | Encounter Summary ---
Author Organization [facility] Address [facility] [place] [address] Care Team Providers Care Counter Former Name Role Phone Hattie Ivory [facility] Primary Care Provider + Encounter Details Date Type Department Care Team (Late st Contact Info) Description 06/03/2023 [employer] Message [employer] [facility] Medical Group Family & Internal Medicine [facility] [id number] [place] [address] [facility] Provider records Social History Tobacco Use Types Packs/Day Years [...] Date Recorded Patient Health Questionnaire-2 Score 0 05/13/2023 Comments No Sex and Gender Information Value Date Recorded Sex Assigned at Not on file Legal Sex Female 5:23 PM CDT Gender Identity Female 06/17/2021 1:51 PM SUPERVISOR MAINSPRING FABRICATION Sexual Orientation Straight 06/17/2021 1: 51 PM SUPERVISOR MAINSPRING FABRICATION documented as of this encounter Plan of Treatment Not on file documented as of this encounter Visit Diagnoses Not on filedocumented in this encounter Additional Health Concerns Infection Onset Date Last Indicated Resolved Time COVID-19 Rule Out 07/24/2023 07/24/2023 07/24/2023 9:15 AM SUPERVISOR MAINSPRING FABRICATION Assessment Noted Time PHQ-9 Depression Total Score: 7 05/13/20 9:31 AM SUPERVISOR MAINSPRING FABRICATION documented as of this encounter Care Teams Counter Former Relationship Specialty Start Date End Date Hattie Ivory, DATA MANAGEMENT MANAGER- [address], [address] [place] [address] [phone] PCP - General Nurse Practitioner Family 03/23/23 documented as of this encounter
--- OUTSIDE RECORDS SUMMARY | 2024-08-26 09:15 | XMS_ITS | Encounter Summary ---
Author Organization [facility] Address [facility] [place] [address] Care Team Providers Care Car Mechanic Helper Name Role Phone Holli Cedeño Primary Care Provider [phone] Hattie Ivory [facility] Primary Care Provider + Encounter Details Date Type Department Care Team (Late st Contact Info) Description 04/09/2022 [employer] Message Enc [facility] Medical Group Family & Internal Medicine [facility] [address] [place] [address] Holli Cedeño [place] [phone] [place] [address] [phone] [email or web address] Social History Tobacco Use Types Packs/Day Years [...] CDT Gender Identity Female 06/17/2021 1:51 PM CASEY SAW OPERATOR Sexual Orientation Straight 06/17/2021 1: 51 PM CASEY SAW OPERATOR documented as of this encounter Plan of Treatment Not on file documented as of this encounter Visit Diagnoses Not on filedocumented in this encounter Additional Health Concerns Infection Onset Date Last Indicated Resolved Time COVID-19 Rule Out 07/24/2023 07/24/2023 07/24/2023 9:15 AM CASEY SAW OPERATOR Assessment Noted Time PHQ-9 Depression Total Score: 6 02/12/20 22 2:48 PM CDT documented as of this encounter Care Teams Car Mechanic Helper Relationship Specialty Start Date [place] Date Holli [place] [address] [place] [address] PCP - General PHYSICIAN TRANSFER TABLE OPERATOR 10/05/19 03/22/23 Hattie Ivory, DREDGE OR BARGE SHORE HAND- [id number], [address] [address] PCP - General Nurse Practitioner Family 03/23/23 documented as of this encounter
--- OUTSIDE RECORDS SUMMARY | 2024-08-26 09:15 | XMS_ITS | Encounter Summary ---
Author Organization [facility] Address [facility] [place] [address] Care Team Providers Care Cdl Program Coordinator Name Role Phone Holli Cedeño Primary Care Provider [phone] Hattie Ivory [facility] Primary Care Provider + Encounter Details Date Type Department Care Team (Late st Contact Info) Description 08/13/2021 [employer]St Message Enc [facility] Medical Group Family & Internal Medicine [facility] [address] [place] [address] Holli Cedeño [place] [phone] [place] [address] [phone] Right hand Social History Tobacco Use Types Packs/Day Years [...] CDT Gender Identity Female 06/17/2021 1:51 PM MEDICAL ESTHETICIAN Sexual Orientation Straight 06/17/2021 1 :51 PM MEDICAL ESTHETICIAN documented as of this encounter Plan of Treatment Not on file documented as of this encounter Visit Diagnoses Not on filedocumented in this encounter Additional Health Concerns Infection Onset Date Last Indicated Resolved Time COVID-19 Rule Out 10/11/2021 10/11/2021 10/11/2021 3:16 PM CDT COVID-19 Rule Out 07/24/2023 07/24/2023 07/24/2023 9:15 AM MEDICAL ESTHETICIAN Assessment Noted Time PHQ-9 Depression Total Score: 0 04/04/20 7:48 AM MEDICAL ESTHETICIAN documented as of this encounter Care Teams Cdl Program Coordinator Relationship Specialty Start Date [place] Date [place] [address] [place] [address] PCP - General PHYSICIAN EXPLORATION GEOLOGIST 10/05/19 03/22/23 Hattie Ivory, SERVICE ASSISTANT- [address] [address], [facility] [address] [place] [address] PCP - General Nurse Practitioner Family 03/23/23 documented as of this encounter
--- OUTSIDE RECORDS SUMMARY | 2024-08-26 09:15 | XMS_ITS | Encounter Summary ---
Author Organization [facility] Address [facility] [place] [address] Care Team Providers Care Fuel Oil Truck Driver Name Role Phone Hattie Ivory [facility] Primary Care Provider + Encounter Details Date Type Department Care Team (Late st Contact Info) Description 05/19/2023 [employer] Message [facility] Medical Group Family & Internal Medicine [facility] [phone] [place] [address] [facility] Provider MRI Social History Tobacco Use Types Packs/Day Years [...] CDT Gender Identity Female 06/17/2021 1:51 PM HERD TESTER Sexual Orientation Straight 06/17/2021 1: 51 PM HERD TESTER documented as of this encounter Plan of Treatment Not on file documented as of this encounter Visit Diagnoses Not on filedocumented in this encounter Additional Health Concerns Infection Onset Date Last Indicated Resolved Time COVID-19 Rule Out 07/24/2023 07/24/2023 07/24/2023 9:15 AM HERD TESTER Assessment Noted Time PHQ-9 Depression Total Score: 7 05/13/20 9:31 AM HERD TESTER documented as of this encounter Care Teams Fuel Oil Truck Driver Relationship Specialty Start Date End Date Hattie Ivory, DATA WAREHOUSE ADMINISTRATOR- [address], [address] [place] [address] [phone] PCP - General Nurse Practitioner Family 03/23/23 documented as of this encounter
== END 2024-08-26 09:02 | disposition home or self-care (01) ==
LOC: ANHSURGERY 09:08
PROVIDERS: Visit Provider Obstetrics & Gynecology
DX: N92.0 Excessive and frequent menstruation with regular cycle (principal)
CPT/HCPCS: 36415; 86850; 86900; 86901

== ENCOUNTER 2024-08-31 00:21 | Day surgery (SDC) | payer BC, SELFPAY ==
[2024-08-25 09:26] VITALS: BMI 30.7
--- NOTE | 2024-08-25 09:36 | PC.NURSE ---
Report to the Outpatient Waiting Room, entrance under the green pavilion located off [facility], at time 0600_ on date 08/31/24 _. Planned Procedure Time: 0730__.? Time changes happen often and if your time is changed the preop area will call you the afternoon before. - You and your visitor will be asked to self-screen and do not enter if you have any COVID symptoms. Please call surgeon if you need to reschedule. - A mask is optional within the hospital at this time. Patients may have clear liquids (water, carbonated beverages, clear teas, apple juice) until 3 hours prior to surgery with a maximum of 20 ounces. - No food from midnight until time of surgery and no smoking, or chewing tobacco (or any form of nicotine). No chewing gum, candy or mints. - Infants may have breast milk until 4 hours before surgery, infant formula 6 hours prior to surgery. - Children will be allowed to drink immediately following surgery.? If applicable, please bring a bottle or sippy cup to assist with drinking. Juice, water, soda, and popsicles are readily available.? For infants on formula, please bring formula the day of surgery.? Pacifiers are allowed. Take only the following medications with a SIP of water on the morning of surgery: NONE, LORAZEPAM IF NEEDED DO NOT STOP ANY OF YOUR OTHER PRESCRIPTION MEDICATIONS PRIOR TO SURGERY EXCEPT THE FOLLOWING Hold all vitamins and supplements for 3 days per anesthesiologist. Medications to discontinue per physician Date to take last dose Please no make-up, nail czech, hairspray, perfume, deodorant, or body powder the day of surgery.? No jewelry (including any body piercings) or valuables the day of surgery, leave them at home.? Please take a shower or bath the night before, or the morning of, surgery with an antibacterial soap.? Wear comfortable, loose fitting clothing.? Children are encouraged to wear pajamas. - Jewelry must be removed prior to entering the operating room.? Rings and piercings that are not removed may be cut off. - The hospital will not accept responsibility for valuables.? - Please leave all valuables, including medications, at home the day of surgery. If you are going home after surgery, a licensed driver guard must drive you home.? - NO public transportation without another adult if you receive anesthesia. - We recommend that an adult stay with you for 24 hours following discharge. - We also recommend that you do not drive, make important decision, drink alcoholic beverages, or take any drugs that were not prescribed by your health care provider for at least 24 hours after your discharge time. For Pediatric surgeries, we recommend two adults accompany the child home. Follow any additional instructions given to you from your surgeon. Telephone instructions given to _BEER__and asked if any additional questions and then verbalized understanding. Patient advised to call surgeon office or pre surgery nurse liaison [phone] if any additional questions.
[2024-08-31] VITALS (13 sets, daily range): BP systolic 111–152; BP diastolic 69–98; PULSE 69–100; RESP 14–22; TEMP 36.1–37.3; O2SAT 92–100
--- OUTSIDE RECORDS SUMMARY | 2024-08-31 00:24 | XMS_ITS | Encounter Summary ---
Author Organization [facility] Address [facility] [place] [address] Care Team Providers Care Shovel Handle Assembler Name Role Phone Holli Cedeño Primary Care Provider [phone] Hattie Ivory [facility] Primary Care Provider + Encounter Details Date Type Department Care Team (Late st Contact Info) Description 04/09/2022 Personal [employer] Message Enc [facility] Medical Group Family & Internal Medicine [facility] [address] [place] [address] Holli Cedeño [place] [phone] [place] [address] [phone] [email or web address] Social History Tobacco Use Types Packs/Day [...] CDT Gender Identity Female 06/17/2021 1:51 PM ASSOCIATE PRODUCT MANAGER Sexual Orientation Straight 06/17/2021 1: 51 PM ASSOCIATE PRODUCT MANAGER documented as of this encounter Plan of Treatment Not on file documented as of this encounter Visit Diagnoses Not on filedocumented in this encounter Additional Health Concerns Infection Onset Date Last Indicated Resolved Time COVID-19 Rule Out 07/24/2023 07/24/2023 07/24/2023 9:15 AM ASSOCIATE PRODUCT MANAGER Assessment Noted Time PHQ-9 Depression Total Score: 6 02/12/20 22 2:48 PM CDT documented as of this encounter Care Teams Shovel Handle Assembler Relationship Specialty Start Date [place] [address] [place] [address] PCP - General PHYSICIAN PAINTING WORKER 10/05/19 03/22/23 Hattie Ivory, ANALYST MARKET INTELLIGENCE- [address], [address] [address] PCP - General Nurse Practitioner Family 03/23/23 documented as of this encounter
--- OUTSIDE RECORDS SUMMARY | 2024-08-31 00:24 | XMS_ITS | Encounter Summary ---
Author Organization [facility] Address [facility] [place] [address] Care Team Providers Care Operator/Assistant Foreman Name Role Phone Holli Cedeño Primary Care Provider [phone] Hattie Ivory [facility] Primary Care Provider + Encounter Details Date Type Department Care Team (Late st Contact Info) Description 11/14/2022 [employer] Message Enc [facility] Medical Group Family & Internal Medicine [facility] [address] [place] [address] Holli Cedeño [place] [phone] [place] [address] [phone] Elastic Attacher Zigzag Social History Tobacco Use Types Packs/Day Years [...] CDT Gender Identity Female 06/17/2021 1:51 PM MOLDING LINE OPERATOR Sexual Orientation Straight 06/17/2021 1: 51 PM MOLDING LINE OPERATOR COVID-19 Exposure Response Date Recorded In the [...] Rule Out 07/24/2023 07/24/2023 07/24/2023 9:15 AM MOLDING LINE OPERATOR Assessment Noted Time PHQ-9 Depression Total Score: 6 02/12/20 22 2:48 PM CDT documented as of this encounter Care Teams Operator/Assistant Foreman Relationship Specialty Start [place] [address] [place] [address] PCP - General PHYSICIAN MEDICAL ADVISOR 10/05/19 03/22/23 Hattie Ivory, NIGHT FILLER- [address], [address] [place], [place] [phone] PCP - General Nurse Practitioner Family 03/23/23 documented as of this encounter
--- OUTSIDE RECORDS SUMMARY | 2024-08-31 00:24 | XMS_ITS | Encounter Summary ---
Author Organization [facility] Address [facility] [place] [address] Care Team Providers Care Weaver Axminster Name Role Phone Holli Cedeño Primary Care Provider [phone] [facility] Primary Care Provider + Encounter Details Date Type Department Care Team (Late st Contact Info) Description 02/11/2022 [employer] Message Enc [facility] Medical Group Family & Internal Medicine [facility] [address] [place] [address] Holli Cedeño [place] [phone] [place] [address] [phone] Meds Social History Tobacco Use Types Packs/Day [...] CDT Gender Identity Female 06/17/2021 1:51 PM CORE CUTTER Sexual Orientation Straight 06/17/2021 1: 51 PM CORE CUTTER COVID-19 Exposure Response Date Recorded In the [...] Rule Out 07/24/2023 07/24/2023 07/24/2023 9:15 AM CORE CUTTER Assessment Noted Time PHQ-9 Depression Total Score: 6 02/12/20 2:48 PM CDT documented as of this encounter Care Teams Weaver Axminster Relationship Specialty Start Date [place] Date [place] [address] [place] [address] PCP - General PHYSICIAN LABOR ECONOMICS PROFESSOR 10/05/19 03/22/23 Hattie Ivory, SHERLYN- [address] [address], [address] [place] [address] PCP - General Nurse Practitioner Family 03/23/23 documented as of this encounter
--- OUTSIDE RECORDS SUMMARY | 2024-08-31 00:24 | XMS_ITS | Encounter Summary ---
Author Organization [facility] Address [facility] [place] [address] Care Team Providers Care Automobile Service Advisor Name Role Phone Holli Cedeño Primary Care Provider [phone] Hattie Ivory [facility] Primary Care Provider + Encounter Details Date Type Department Care Team (Late st Contact Info) Description 04/12/2022 [employer] Message Enc [facility] Medical Group Family & Internal Medicine [facility] [address] [place] [address] Holli Cedeño [place] [phone] [place] [phone] 3 bulging disks Social History Tobacco Use [...] CDT Gender Identity Female 06/17/2021 1:51 PM PARKING GARAGE MANAGER Sexual Orientation Straight 06/17/2021 1: 51 PM PARKING GARAGE MANAGER COVID-19 Exposure Response Date Recorded In the last 10 days, have yo u been in contact with someone who was confirmed or suspected to have Coronavirus/COVID-19? No / Unsure 04/15/2022 8:04 AM PARKING GARAGE MANAGER documented as of this encounter Plan of Treatment Not on file documented as of this encounter Visit Diagnoses Not on filedocumented in this encounter Additional Health Concerns Infection Onset Date Last Indicated Resolved Time COVID-19 Rule Out 07/24/2023 07/24/2023 07/24/2023 9:15 AM PARKING GARAGE MANAGER Assessment Noted Time PHQ-9 Depression Total Score: 6 02/12/20 2:48 PM CDT documented as of this encounter Care Teams Automobile Service Advisor Relationship Specialty Start Date [place] Date [place] [address] [place] [address] PCP - General PHYSICIAN WATER GAS OPERATOR 10/05/19 03/22/23 Hattie Ivory, PARIMUTUEL TICKET SELLER- [address], [address] [place] [address] PCP - General Nurse Practitioner Family 03/23/23 documented as of this encounter
--- OUTSIDE RECORDS SUMMARY | 2024-08-31 00:24 | XMS_ITS | Encounter Summary ---
Author Organization [facility] Address [facility] [place] [address] Care Team Providers Care High School Director Name Role Phone Holli Cedeño Primary Care Provider [phone] Hattie Ivory [facility] Primary Care Provider + Encounter Details Date Type Department Care Team (Late st Contact Info) Description 01/27/2022 SpiceCSMt Message Enc [facility] Medical Group Family & Internal Medicine [facility] [address] [place] [address] Holli Cedeño [place] [id number] [place] [address] [phone] Mammogram results Social History Tobacco Use Types [...] CDT Gender Identity Female 06/17/2021 1:51 PM DRY DRUG WORKER Sexual Orientation Straight 06/17/2021 1: 51 PM DRY DRUG WORKER COVID-19 Exposure Response Date Recorded In the [...] Rule Out 07/24/2023 07/24/2023 07/24/2023 9:15 AM DRY DRUG WORKER Assessment Noted Time PHQ-9 Depression Total Score: 14 022 1:49 PM CDT documented as of this encounter Care Teams High School Director Relationship Specialty Start [place] [address] [place] [address] PCP - General PHYSICIAN CREDIT UNION TELLER 10/05/19 03/22/23 Hattie Ivory, AIRCRAFT STEEL FABRICATOR- [address], [address] [place] [address] PCP - General Nurse Practitioner Family 03/23/23 documented as of this encounter
--- OUTSIDE RECORDS SUMMARY | 2024-08-31 00:24 | XMS_ITS | Encounter Summary ---
Author Organization [facility] Address [facility] [place] [address] Care Team Providers Care Internet Systems Administrator Name Role Phone Holli Cedeño Primary Care Provider [phone] Hattie Ivory [facility] Primary Care Provider + Encounter Details Date Type Department Care Team (Late st Contact Info) Description 02/24/2022 mEgo Message Enc [facility] Medical Group Family & Internal Medicine [address] [address] [facility] Provider Appointment Social History Tobacco Use Types [...] CDT Gender Identity Female 06/17/2021 1:51 PM JUNIOR ACCOUNTANT Sexual Orientation Straight 06/17/2021 1: 51 PM JUNIOR ACCOUNTANT COVID-19 Exposure Response Date Recorded In the [...] Rule Out 07/24/2023 07/24/2023 07/24/2023 9:15 AM JUNIOR ACCOUNTANT Assessment Noted Time PHQ-9 Depression Total Score: 6 02/12/20 2:48 PM CDT documented as of this encounter Care Teams Internet Systems Administrator Relationship Specialty Start [place] [address] [place] [address] PCP - General PHYSICIAN STOCK TRANSFER CLERK 10/05/19 03/22/23 Hattie Ivory, SWIMMER- [address], [address] [place] [address] PCP - General Nurse Practitioner Family 03/23/23 documented as of this encounter
--- OUTSIDE RECORDS SUMMARY | 2024-08-31 00:24 | XMS_ITS | Clinical Summary ---
Author Organization [facility] Address [address] [place] [address] Care Team Providers Care Bag Machine Adjuster Name Role Phone Jaen Abraham MD Primary Care Provider Source Comments [facility],non-owned Affiliates and Associated Physician Practices is amultiple site organization consisting of ambulatory clinics and hospital sitesin [place], [place], [place] and [place]. This disclosure is being madepursuant to the Care Everywhere program and may not contain all information available regarding this patient. Last updated 18.[facility] Allergies No known active allergies Medications * [...] Comments Blood Pressure 98/56 04/24/2011 11:12 AM MEDICAL ESTHETICIAN Pulse 47 04/24/2011 11:12 AM MEDICAL ESTHETICIAN Temperature 37 C (98.6 F) 04/24/2011 9:28 AM MEDICAL ESTHETICIAN Respiratory Rate 19 04/24/2011 11:12 AM MEDICAL ESTHETICIAN Oxygen Saturation 99% 04/24/2011 11:12 AM MEDICAL ESTHETICIAN Inhaled Oxygen Concentration - - Weight 56.7 kg (125 lb) 04/24/2011 9:26 AM MEDICAL ESTHETICIAN Height 166.4 cm (5' 5.5 ) 04/24/2011 9:26 AM MEDICAL ESTHETICIAN Body Mass Index 20.48 04/24/2011 9:26 AM MEDICAL ESTHETICIAN Plan of Treatment Health Maintenance Due Date [...] age to complete this topic Care Teams Bag Machine Adjuster Relationship Specialty Start Date End Date Jane Abraham MD [address] [place] [phone] PCP - General 04/24/11
--- OUTSIDE RECORDS SUMMARY | 2024-08-31 00:24 | XMS_ITS | Data Portability ---
Author Organization [facility] Address [address] [place] [address] [place] [address] Care Team Providers Care Telephone Plant Power Operator Name Role Phone [facility] Primary Care Provider Assessment Encounter Date Assessment Date Assessment LastModified by Organization Details LastModified Time 05/16/2024 05/16/2024 Annual gynecological exam performed. Patient will come back in a year unless there are new symptoms. [email or web address] Not available 05/16/2024 15:23:53 Plan of Treatment Reminders Order Date Submit Date Provider Last Modified By Organization Details Last Modified Time Details Appointments Robotic [facility] 2024 07:30A Lyssa JOSEPH MD Not available Not available Not available SURG POST OP 2024 08:30A Lyssa JOSEPH MD Not available Not available Not available Lab test, urine 2022 023 [email or web address], [address], [place], [address], 05/20/2023 10:09:00 Referral None recorded. Procedures None recorded. Surgeries total hysterect kuldeep, laparosco pic, with bilateral salpingo- oophorect kuldeep (SURG) 2024 025 [email or web address] [facility] [address], [place], [address], 06/27/2024 22:29:41 Imaging None recorded. Medication Orders None recorded. Patient TargetsNo targets recorded. Patient InstructionsNo instructions recorded. Reason for Referral None Reported. Results Created Date Observation Date Name Description Value Unit Range Abnormal Flag Note LastModifiedBy Organization Detail LastModifiedTime 05/04/20 23 05/04/2023 IMAGE GUIDE D PAP AND HPV REGAR DLESS image guided Pap, HPV regardless of Pap result SEE RESULT S BELOW abnormal CASE REPOR T: Cytol ogy Gynec ologi fabien Repor t Case: [id number] Autho rodneygabino dianna Provi norberto: Jacque Raman, XIOMY Garcia cted: 05/04 1653 Order ing Locat ion: [place] Patho log[facility] Recei beryl: 05/05 0850 First Scree n: Leila Burrell Patho logis t: Mehul Malik MD Speci men: Slime haas Pap - Image d, Cervi x STATE MENT OF ADEQU ACY: Satis facto ry for evalu ation Trans forma tion zone compo nent prese nt FINAL DIAGN OSIS: Epith elial Cell Abnor malit y, Squam ous Cell: Low Grade Squam ous Intra epith elial Lesio n (LSIL ). Shift in [place] sugge stive of bacte rial vagin osis. Elect jacki dennis by Mehul Malik MD on 05/07 at 12:11 PM ----- ----- ----- ----- ----- ----- ----- ----- ----- ----- ----- ----- ----- ----- ----- ----- ----- ---- HPV RESUL TS: HPV mRNA E6/E7 : Posit alvin - HPV mRNA Detec mami HPV GENOT YPE 16 (GEORGE) : Not Detec mami HPV GENOT YPE 18/45 (GEORGE) : Detec mami NOTE: This high risk HPV mRNA assay detec ts fourt een high- risk HPV types (16, 18, 31, 33, 35, 39, 45, 51, 52, 56, 58, 59, 66, 68) witho ut diffe renti ation . This assay can diffe renti ate HPV 16 from HPV 18/45 , but does not diffe renti ate betwe en HPV 18 and HPV 45. A negat alvin HPV 16, 18/45 genot ype assay resul t does not exclu de the possi bilit y of cytol ogic abnor malit ies or of futur e or under lying RUDOLPH 1, RUDOLPH 3 or cance r. COMME NT: This speci men was revie wed by a Cytot echno logis t and/o r Patho logis t (as indic ated in this repor t) after evalu ation using the Thinp rep Imagi ng Syste m. CLINI FABIEN INFOR MATIO N: Menst rual Statu s: LMP (if appli cable ): 2022 Clini fabien Histo ry/Pr eviou s Pap: Type of Neopl shantell (if appli cable ): Signi fican t Clini fabien Findi ngs: Other Histo ry: Hormo jana (if appli cable ): SUGGE STED FOLLO W-UP: Follo w up as warra nted, based on curre nt guide lines and indiv idual patie nt consi derat ions. Not Available [facility] ([facility]) [address], [place], [address], 05/07/2023 13:15:11 05/04/20 23 05/04/2023 TRICH OMONA S VAGIN KADY (RRNA ) trichomonas vaginalis ribosomal RNA (rrna) NEGATI VE negati ve Not Available [facility] ([facility]) [address], [place], [address], 05/07/2023 13:15:12 05/04/20 23 05/04/2023 CT/GC (GEORGE) , THINP REP VIAL chlamydia trachomatis, PCR NEGATI VE negati ve Not Available [facility] ([facility]) [address], [place], [address], 05/07/2023 13:15:12 05/04/20 23 05/04/2023 CT/GC (GEORGE) , THINP REP VIAL neisseria gonorrhoeae, PCR NEGATI VE negati ve Not Available [facility] ([facility]) [address], [place], [address], 05/07/2023 13:15:12 05/20/20 23 05/26/2023 BIOPS Y, ENDOC ERVIC AL endocervical curettage histology Negati ve normal Not Available [facility] ([facility]) [address] , [place], [address], 05/26/2023 09:20:19 05/20/20 23 05/26/2023 BIOPS Y, ENDOC ERVIC AL results (A1) ENDOC ERVIX GROSS ING INFOR MATIO N: Recei beryl in forma greg on a soft ecc brush is a 0.2 cm aggre gate of pink- tinge d mucoi d/fib rinou s mater ial. Speci men is filte red and total ly submi tted. A1 DIAGN OSIS: Benig n endoc ervic al tissu e. No ectoc ervic al tissu e. No intra epith elial lesio n. Not Available [facility] ([facility]) [address], [place], [address], 05/26/2023 09:20:19 05/20/20 23 05/20/2023 pregn kiana test, urine HCG positi ve Not Available [address], [place], [address], 05/20/2023 10:08:52 05/16/20 24 05/16/2024 IMAGE GUIDE D PAP AND HPV REGAR DLESS image guided Pap, HPV regardless of Pap result SEE RESULT S BELOW abnormal CASE REPOR T: Cytol ogy Gynec ologi fabien Repor t Case: [id number] Autho clemente bustamante Provi norberto: Jacque Raman, XIOMY Colle cted: 05/16 1614 Order ing Locat ion: [place] Patho logy Recei beryl: 05/17 0135 First Scree n: Anna John, [place] Patho logis t: Teresa Gupta MD Speci men: Slime haas Pap - Image d, Cervi x STATE MENT OF ADEQU ACY: Satis facto ry for evalu ation Trans forma tion zone compo nent absen t ----- ----- ----- ----- ----- ----- ----- ----- ----- ----- ----- ----- ----- ----- ----- ----- ----- ---- FINAL DIAGN OSIS: Epith elial Cell Abnor malit y, Squam ous Cell: Atypi fabien Squam ous Cells of Undet ermin ed Signi dereck ce (ASC- US). Shift in [place] sugge stive of bacte rial vagin osis. Elect jacki randall amarilis d by Teresa garcia MD on 025 at 1318 JEWELRY ENGRAVER ----- ----- ----- ----- ----- ----- ----- ----- ----- ----- ----- ----- ----- ----- ----- ----- ----- ---- HPV RESUL TS: HPV mRNA E6/E7 : Posit alvin - HPV mRNA Detec mami HPV GENOT YPE 16 (GEORGE) : Not Detec mami HPV GENOT YPE 18/45 (GEORGE) : Detec mami NOTE: This high risk HPV mRNA assay detec ts fourt een high- risk HPV types (16, 18, 31, 33, 35, 39, 45, 51, 52, 56, 58, 59, 66, 68) witho ut diffe renti ation . This assay can diffe renti ate HPV 16 from HPV 18/45 , but does not diffe renti ate betwe en HPV 18 and HPV 45. A negat alvin HPV 16, 18/45 genot ype assay resul t does not exclu de the possi bilit y of cytol ogic abnor malit ies or of futur e or under lying RUDOLPH 1, RUDOLPH 3 or cance r. COMME NT: This speci men was revie wed by a Cytot echno logis t and/o r Patho logis t (as indic ated in this repor t) after evalu ation using the Thinp rep Imagi ng [place] m. CLINI FABIEN INFOR MATIO N: Menst rual Statu s: LMP (if appli cable ): Clini fabien Histo ry/Pr eviou s Pap: Type of Neopl shantell (if appli cable ): Signi fican t Clini fabien Findi ngs: Other Histo ry: Hormo jana (if appli cable ): BJ MARTINO FOLLO W-UP: Follo w up as warra nted, based on curre nt guide lines and indiv idual patie nt consi derat ions. Not Available [facility] ([facility]) [address], [place], [address], 05/30/2024 14:21:50 06/13/19 25 06/13/2024 SURGI FABIEN PATHO LOGY surgical pathology SEE RESULT S BELOW CASE REPOR T: Surgi fabien Patho logy Repor t Case: [id number] Autho clemente bustamante Provi norberto: Avani Joseph MD Colle cted: 06/13 1510 Order ing Locat ion: [place] Patho logy Recei beryl: 06/14 0126 Patho logis t: Vance small , Bailey Thompson MD Speci men: Endoc ervix , ECC ----- ----- ----- ----- ----- ----- ----- ----- ----- ----- ----- ----- ----- ----- ----- ----- ----- ---- FINAL DIAGN OSIS: Endoc ervix , curet tage: -High -grad e squam ous intra epith elial lesio n (RUDOLPH- 2) invol ving detac hed fragm ents of squam ous epith elium . -Endo cervi x negat alvin for dyspl shantell. -P16 immun ohist ochem ical stain perfo rmed to evalu ate the degre e of dyspl shantell shows posit alvin stain ing in the squam ous epith elium , suppo rting the diagn osis. Katelin randall amarilis d by Bailey small MD on 2024 at 0844 JEWELRY ENGRAVER ----- ----- ----- ----- ----- ----- ----- ----- ----- ----- ----- ----- ----- ----- ----- ----- ----- ---- CLINI FABIEN INFOR MATIO N: Atypi fabien squam ous cells of undet ermin ed signi fican ce MICRO SCOPI C DESCR IPTIO N: A micro scopi c exami natio n was perfo rmed. This test was devel oped and its perfo rmanc e julio cteri stics deter mined by [facility]. It has not been clear ed or appro beryl by the U. S. Food and Drug Admin istra tion. The FDA has deter mined that such clear ance or appro melissa is not neces jelani. This test may be used for clini fabien purpo se. It shoul d not be regar ded as inves tigat ional or for resea rch. This labor atory is certi fied under the Clini fabien Labor atory Impro vemen t Amend ments of 1987 (CLIA ) as quali fied to perfo rm high compl exity clini fabien labor atory testi ng. In cases which have decal cifie d tissu es, the resul ts shoul d be inter prete d with cauti on given the possi bilit y of false negat trena. The posit alvin contr ols demon strat e appro priat e posit alvin stain ing. The known tissu e negat alvin contr ols are negat alvin. The non-i mmune serum contr ol was non-r eacti ve. GROSS DESCR IPTIO N: A. Endoc ervix . The speci men is label ed with the patie nt's name, kandis larsen cs and ECC . Recei beryl in forma greg is a 1.0 x 1.0 x 0.2 cm aggre gate of mucus and minut e white -pena tissu e. The entir e speci men is submi tted in one casse tte. Gross ed by Herberth rankin Not Available [facility] ([facility]) [address], [place], [address], 06/15/2024 09:49:50 Result Notes None recorded. Problems Name Problem SNOMED Code Status Onset Date Resolution Date Notes Provider Name and Address Organization Details Recorded Time SNOMED CT Concept Completed 201510/24/2020 Encntr for general adult medical exam w/o abnormal findings ;Recorde d Elsewher e: No Locat ion: [facility] S ource: EHR Turf Grower vianca: N Suad ce ID: 0001 Ravindra lable Time: 10:30:00 AM Abril Crane [facility] 09:53:48 Adult health examinat ion Completed 201410/24/2020 ROUTINE MEDICAL EXAM;Rec orded Elsewher e: No Locat ion: [facility] S ource: EHR Turf Grower vianca: N Suad ce ID: 0001 Ravindra lable Time: 11:30:00 AM Abril fulton [facility] 09:53:38 Pelvic and perineal pain [id number] Completed 201710/24/2020 Pelvic and perineal pain;Rec orded Elsewher e: No Locat ion: [facility] S ource: EHR Turf Grower vianca: N Suad ce ID: 0001 Ravindra lable Time: 08:30:00 AM Abril fulton [facility] 09:53:45 Pain in female genitali a Completed 201710/24/2020 Dysmenor robin;Rec orded Elsewher e: No Locat ion: [facility] S ource: EHR Turf Grower vianca: N Salimati ce ID: 0001 Ravindra lable Time: 08:30:00 AM Abril fulton, [facility] [address] 09:53:[address] Concept Completed 201710/24/2020 Encntr for dry cell and battery assembler exam (general ) (routine ) w/o abn findings ;Recorde d Elsewher e: No Locat ion: [facility] S ource: EHR Turf Grower vianca: N Practi ce ID: 0001 Ravindra lable Time: 08:15:00 AM bAril fulton, [facility] 09:53:50 Speciali zed medical examinat ion Completed 201110/24/2020 Gynecolo gical Examinat ion;Andrae rded Elsewher e: No Locat ion: [facility] S ource: EHR Turf Grower vianca: N Practi ce ID: 0001 Ravindra lable Time: 08:30:00 AM Abril fulton, [facility] 09:54:03 Female infertil ity of tubal origin [id number] Completed 201710/24/2020 Female infertil ity of tubal origin;R ecorded Elsewher e: No Locat ion: [facility] S ource: EHR Turf Grower vianca: N Practi ce ID: 0001 Ravindra lable Time: 09:00:00 AM Abril fulton, [facility] 1 09:53:52 Evaluati on finding Completed 201710/24/2020 Hematuri a, unspecif ied;Andrae rded Elsewher e: No Locat ion: [facility] S ource: EHR Turf Grower vianca: N Practi ce ID: 0001 Ravindra lable Time: 02:22:28 PM Abril fulton, [facility] 1 09:53:41 Radiolog ic finding [id number] Completed 201810/24/2020 Oth abn and inconclu sive findings on dx imaging of breast;R ecorded Elsewher e: No Locat ion: [facility] S ource: EHR Turf Grower vianca: N Practi ce ID: 0001 Ravindra lable Time: 08:15:00 AM Abril fulton, [facility] 1 09:53:43 Screenin g for malignan t neoplasm of cervix Completed 201110/24/2020 Screenin g for malignan t neoplasm s of the cervix;R ecorded Elsewher e: No Locat ion: [facility] N Practi ce ID: 0001 Ravindra lable Time: 08:30:00 AM Abril fulton, [facility] 1 09:53:25 Screenin g for malignan t neoplasm of rectum Completed 201810/24/2020 Encounte r for screenin g for malignan t neoplasm of rectum;R ecorded Elsewher e: No Locat ion: [facility]: N Practi ce ID: 0001 Ravindra lable Time: 08:15:00 AM Abril fulton, [facility] 1 09:53:46 Dyspareu hieu [id number] Completed 201210/24/2020 Dyspareu hieu;Andrae rded Elsewher e: No Locat ion: [facility] S ource: EHR Turf Grower vianca: N Practi ce ID: 0001 Ravindra lable Time: 04:00:00 PM Abril fulton, [facility] 1 09:54:07 Pregnanc y test negative [id number] Completed 201210/24/2020 Pregnanc y examinat ion or test, negative result;R ecorded Elsewher e: No [facility]: E[facility] Turf Grower vianca: N Practi ce ID: 0001 Ravindra lable Time: 03:30:00 PM Abril fulton, [facility] 09:53:37 Menopaus al symptom [id number] Completed 201210/24/2020 Menopaus al or female climacte oh states;R ecorded Elsewher e: No Locat ion: [facility] S ource: EHR Turf Grower vianca: N Practi ce ID: 0001 Ravindra lable Time: 04:00:00 PM Abril fulton, [facility] 09:53:30 Irregula r intermen strual bleeding [id number] Completed 201210/24/2020 Metrorrh agia;Rec orded Elsewher e: No Locat ion: [facility] S ource: EHR Turf Grower vianca: N Practi ce ID: 0001 Ravindra lable Time: 03:30:00 PM Abril fulton, [facility] 09:54:06 Female infertil ity associat ed with anovulat ion [id number] Completed 201410/24/2020 Infertil ity, female, associat ed with anovulat ion;Andrae rded Elsewher e: No Locat ion: [facility] S ource: EHR Turf Grower vianca: N Practi ce ID: 0001 Ravindra lable Time: 04:00:00 PM Abril fulton, [facility] 09:53:31 Finding of fertilit y Completed 201710/24/2020 Female infertil ity, unspecif ied;Prac zeyad ID: 0001 Abril Royce kirstin, [facility] 09:53:35 Vaginiti s and vulvovag initis Completed 201210/24/2020 Vaginiti s;Record ed Elsewher e: No Locat ion: [facility] S ource: EHR Turf Grower vianca: N Practi ce ID: 0001 Ravindra lable Time: 04:00:00 PM Abril Crane [facility], [facility] 1 09:53:27 Ill-defi lionel intestin al infectio n Completed 201110/24/2020 No Show Fee;Prac zeyad ID: 0001 Abril Crane [facility], [facility] 1 09:53:28 History of abnormal cervical Papanico laou smear [id number] Active 2022 Zahra Soto [facility] 3 13:02:26 History of operativ e procedur e on lumbar spinal structur e [id number] Active 2023 Zahra Soto [facility] 4 15:32:17 Problem Notes None recorded. Procedures Surgical History Date Name Laterality Status Provider Name and Address Organization Details Recorded Time 06/13/19 25 Colposcopy completed Dilshad Joseph MD [address], [place], [address], [facility] 06/13/2024 17:04:02 06/13/19 25 Colposcopy completed Lisa Morales [facility] 06/20/2024 12:57:51 06/13/19 25 Colposcopy completed Lisa Morales [facility] 06/20/2024 12:58:48 05/16/20 24 Date of Last Pap Smear completed Zahra Soto [facility] 05/16/2024 17:11:31 06/30/19 24 Other completed Chuyita Ashton [facility] 06/13/2024 14:51:05 06/30/19 24 fusion completed Chuyita Ashton [facility] 06/13/2024 14:59:07 05/20/20 23 Colposcopy completed Gifty Hunter [facility] [address], [place], [address], [facility] 05/20/2023 14:25:46 05/20/20 23 Colposcopy completed Chuyita Ashton [facility] 06/13/2024 14:58:47 09/13/19 21 IUD Insertion completed Gifty Hunter [facility] [address], [place], [address], [facility] 09/12/2020 12:23:58 10/24/19 20 Date of Last Mammogram completed Madeline Soto [facility] 08/29/2020 09:58:00 10/24/19 20 completed Abril Crane [facility] 10/24/2020 10:03:09 05/25/19 14 reversal of female sterilization completed Abril Doran [facility] 10/24/2020 10:06:31 05/25/19 04 Tubal [facility] completed [facility] 10/24/2020 10:06:37 tonsilectomy/christian oids completed [facility] 08/29/2020 10:00:52 Imaging Results None recorded. Procedure Notes None recorded. Medical Equipment None Reported. Allergies Allergen ID Allergen Name Allergen Category Reaction Reaction Severity Criticality Documentation Date Start Date Code Code System Note Provider Name and Address Organization Details Recorded Time 18343 [facility] erazine medicatio n Not available Not available Not available 05/11/2020 8704 RxNorm Abril fulton [facility] 09:52:39 Medications Name Sig Start Date Stop Date Status Note LastModified by Organization Details LastModified Time cyclobenz aprine 10 mg tablet 05/16 completed Not Available Not Available Not Available amoxicill in 500 mg capsule TAKE ONE CAPSULE BY MOUTH EVERY 8 HOURS UNTIL ALL TAKEN 08/29 completed Not Available Not Available Not Available Mirena 21 mcg/24 hr (up to 8 years) 52 mg intrauter ine device Take by intraute rine route. 2020 active Not Available Not Available Not Avai lable nystatin 100,000 unit/mL oral suspensio n TAKE 5 ML BY MOUTH FOUR TIMES DAILY 05/16 completed Not Available Not Available Not Available Celexa 10 mg tablet take 1 tablet by oral route every day 07/27 completed Prescrib ed Elsewher e: Yes Loca tion: Sunil renteria [facility] odify By: tera Nobles untnina DateTime : 08/27/19 12 08:30:00 AM Not Available Not Available Not Available citalopra m 40 mg tablet TAKE 1 TABLET BY MOUTH ONCE DAILY 05/04 completed Not Available Not Available Not Available azithromy rudolph 250 mg tablet TAKE 2 TABLETS BY MOUTH ON DAY 1, AND THEN TAKE 1 TABLET BY MOUTH ONCE A DAY ON DAY 2 THROUGH DAY 5 05/16 completed Not Available Not Available Not Available fluconazo le 150 mg tablet 05/16 completed Not Available Not Available Not Available clomiphen e citrate 50 mg tablet take 1 tablet by oral route every day 11/03 completed Prescrib ed Elsewher e: No [facility] By: justina Renteria ncojc DateTime : 10/08/19 18 09:00:00 AM Not Available Not Available Not Available meloxicam 15 mg tablet TAKE 1 TABLET BY MOUTH ONCE DAILY 06/13 completed Not Available Not Available Not Available metronida zole 0.75 % (37.5 mg/5 gram) vaginal gel insert 1 applicat orful (37.5MG) by vaginal route every day at bedtime for 5 nights 06/13 completed Not Available Not Available Not Available prednison e 20 mg tablet TAKE 2 TABLETS BY MOUTH ONCE DAILY FOR 10 DAYS 05/16 completed Not Available Not Available Not Available prednison e 5 mg tablet TAKE 1 TABLET BY MOUTH DAILY 05/16 completed Not Available Not Available Not Available hydrocodo ne 10 mg-acetam inophen 325 mg tablet TAKE 1 TABLET BY MOUTH EVERY 4 TO 6 HOURS NEEDED FOR PAIN 05/16 completed Not Available Not Available Not Available amitripty line 50 mg tablet TAKE 1 TABLET BY MOUTH NIGHTLY AT BEDTIME 08/29 completed Not Available Not Available Not Available ketorolac 10 mg tablet TAKE 1 TABLET BY MOUTH EVERY 8 HOURS NEEDED FOR PAIN DO NOT TAKE WITH CONCURRE NT IBUPROFE N OR ANY CONCURRE NT NSAIDS active Not Available Not Available No t Available oxycodone -acetamin ophen 5 mg-325 mg tablet TAKE 1 TABLET BY MOUTH EVERY 8 HOURS NEEDED FOR PAIN 08/29 completed Not Available Not Available Not Available citalopra m 20 mg tablet TAKE 1 TABLET BY MOUTH ONCE DAILY 08/29 completed Not Available Not Available Not Available amitripty line 25 mg tablet TAKE 1 TABLET BY MOUTH NIGHTLY AT BEDTIME 05/16 completed Not Available Not Available Not Available lorazepam 0.5 mg tablet TAKE 1 TABLET BY MOUTH EVERY 8 HOURS NEEDED FOR ANXIETY 10/29 completed Not Available Not Available Not Available oxycodone -acetamin ophen 10 mg-325 mg tablet 05/16 completed Not Available Not Available Not Available Flagyl 500 mg tablet take 1 tablet (500MG) by oral route 2 times every day 07/27 completed Prescrib ed Elsewher e: No Locat ion: [facility] odify By: tera Eastono unter DateTime : 07/01/19 13 03:53:13 PM Not Available Not Available Not Available buspirone 10 mg tablet TAKE 1 TABLET BY MOUTH TWICE DAILY 10/29 completed Not Available Not Available Not Available gabapenti n 300 mg capsule TAKE 1 CAPSULE BY MOUTH THREE TIMES DAILY 06/13 completed Not Available Not Available Not Available folic acid 1 mg tablet TAKE 1 TABLET BY MOUTH ONCE DAILY 05/04 completed Not Available Not Available Not Available monteluka st 10 mg tablet TAKE 1 TABLET BY MOUTH NIGHTLY AT BEDTIME active Not Available Not Available No t Available lorazepam 1 mg tablet TAKE 1 TABLET BY MOUTH EVERY 8 HOURS NEEDED FOR ANXIETY (INSOMNI A) active Not Available Not Available No t Available azelastin e 137 mcg (0.1 %) nasal spray USE 1 TO 2 SPRAY(S) IN EACH NOSTRIL 1 TO 2 TIMES DAILY active Not Available Not Available No t Available ibuprofen 600 mg tablet TAKE 1 TABLET BY MOUTH EVERY 8 HOURS NEEDED FOR PAIN 08/29 completed Not Available Not Available Not Available oxycodone -acetamin ophen 7.5 mg-325 mg tablet TAKE 1 TABLET BY MOUTH EVERY 4 6 HOURS NEEDED 08/29 completed Not Available Not Available Not Available methylpre dnisolone 4 mg tablets in a dose pack TAKE BY MOUTH DIRECTED ON INSIDE OF PACKAGE 05/16 completed Not Available Not Available Not Available hydrocodo ne 10 mg-chlorp heniramin e 8 mg/5 mL oral susp extend.re l 12hr 05/16 completed Not Available Not Available Not Available albuterol sulfate HFA 90 mcg/actua tion aerosol inhaler INHALE 2 PUFFS BY MOUTH EVERY 6 HOURS NEEDED FOR WHEEZING active Not Available Not Available No t Available celecoxib 100 mg capsule TAKE 1 CAPSULE BY MOUTH TWICE DAILY WITH MEALS 05/16 completed Not Available Not Available Not Available ondansetr on 4 mg disintegr ating tablet 05/16 completed Not Available Not Available Not Available cefdinir 300 mg capsule 05/04 completed Not Available Not Available Not Available amitripty line 100 mg tablet TAKE 1 TABLET BY MOUTH NIGHTLY AT BEDTIME active Not Available Not Available No t Available lorazepam 2 mg/mL oral concentra te take 0.5 millilit er by oral route 3 times every day 07/27 completed Prescrib arabella Espinal e: Yes Loca tion: [facility] M odify By: tera rankini Jemmao untnina DateTime : 08/27/19 12 08:30:00 AM Not Available Not Available Not Available diazepam 5 mg tablet TAKE 1 TABLET BY MOUTH THREE TIMES DAILY NEEDED FOR MUSCLE SPASM 05/16 completed Not Available Not Available Not Available amoxicill in 875 mg-potass ium clavulana te 125 mg tablet TAKE 1 TABLET BY MOUTH TWICE DAILY FOR 10 DAYS 05/16 completed Not Available Not Available Not Available buspirone 15 mg tablet TAKE 1 TABLET BY MOUTH TWICE DAILY active Not Available Not Available No t Available Vitamins and Minerals tablet 11/03 completed Prescrib ed Elsewher e: Yes Loca tion: [facility] odify By: justina hopkins DateTime : 08/27/19 12 08:30:00 AM Not Available Not Available Not Available iron 325 mg (65 mg iron) tablet TAKE 1 TABLET BY MOUTH ONCE DAILY 05/04 completed Not Available Not Available Not Available Lunesta 1 mg tablet take 1 tablet by oral route every day at bedtime 10/02 completed Prescrib ed Elsewher e: Yes Loca tion: [facility] M odify By: evette hopkins DateTime : 08/23/19 16 03:30:00 PM Not Available Not Available Not Available chlorhexi dine gluconate 0.12 % mouthwash START USING 2 WEEKS PRIOR TO ORAL SURGERY. SWISH AND SPIT 15 ML THREE TIMES DAILY UNTIL GONE 08/29 completed Not Available Not Available Not Available citalopra m 08/29 completed Not Available Not Available Not Available ferrous sulfate 08/29 completed Not Available Not Available Not Available buspirone 08/29 completed Not Available Not Available Not Available Vitals Date Recorded Body height Body mass index (BMI) Body weight Systolic blood pressure Diastolic blood pressure Provider Name and Address Organization Details Last Updated DateTime 05/20/2023 160.02 cm 27 kg/m2 00620.2 g 118 mm[Hg] 68 mm[Hg] Celia Schofield [facility] 3 10:02:31 Date Recorded Body height Body mass index (BMI) Body weight Systolic blood pressure Diastolic blood pressure Provider Name and Address Organization Details Last Updated DateTime 05/16/2024 160.02 cm 33.7 kg/m2 01128.55 g 125 mm[Hg] 84 mm[Hg] Zahra Soto [facility] 4 15:26:26 Date Recorded Body height Body mass index (BMI) Body weight Systolic blood pressure Diastolic blood pressure Provider Name and Address Organization Details Last Updated DateTime 06/13/2024 160.02 cm 34.2 kg/m2 07477.33 g 117 mm[Hg] 82 mm[Hg] Chuyita Ashton [facility] 5 14:57:33 Date Recorded Body height Body mass index (BMI) Body weight Systolic blood pressure Diastolic blood pressure Provider Name and Address Organization Details Last Updated DateTime 06/20/2024 160.02 cm 34.4 kg/m2 43361.92 g 124 mm[Hg] 86 mm[Hg] Lisa [facility] 5 12:57:24 Date Recorded Body height Body mass index (BMI) Body weight Systolic blood pressure Diastolic blood pressure Provider Name and Address Organization Details Last Updated DateTime 08/29/2024 160.02 cm 33.7 kg/m2 76916.55 g 144 mm[Hg] 96 mm[Hg] Lisa [facility] 5 09:36:19 Social History Question Answer Notes LastModified by Organizat ion Details LastModified Time Do You Have An Advance Directive? No Information n ot available 08/29/2020 What Is Your Level Of Alcohol Consumption? Occasional Information not available 08/29/2020 Are You Blind Or Do You Have Difficulty Seeing? No Information n ot available 08/29/2020 What Is Your Level Of Caffeine Consumption? Moderate Information not available 08/29/2020 How Much Tobacco Do You Chew? None Information not available 08/29/2020 In The 14 Days Before Symptom Onset, Have You Had Close Contact With A Laboratory-confirm ed COVID-19 While That Case Was Ill? No Information n ot available 08/29/2020 In The 14 Days Before Symptom Onset, Have You Had Close Contact With A Person Who Is Under Investigation For COVID-19 While That Person Was Ill? No Information not available 08/29/2020 Have You Been To An Area Known To Be High Risk For COVID-19? No Information not available 08/29/2020 Are You Deaf Or Do You Have Serious Difficulty Hearing? No Information not available 08/29/2020 What Type Of Diet Are You Following? REGULAR Information n ot available 08/29/2020 What Is The Highest Grade Or Level Of School You Have Completed Or The Highest Degree You Have Received? 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 No Information not available 08/29/2020 Do You Use Protection During Sex? Always Information not available 08/29/2020 Do You Use Your Seat Belt Or Car Seat Routinely? Yes Information not available 08/29/2020 Do You Have Smoke And Carbon Monoxide Detectors In Your Home? Yes Information not available 08/29/2020 At What Age Did You Start Smoking Tobacco? 14 Information not available 08/29/2020 How Much Tobacco Do You Smoke? 1 PPD Information not available 08/29/2020 Do You Feel Stressed (tense, Restless, Nervous, Or Anxious, Or Unable To Sleep At Night)? [id number] Information not available 08/29/2020 Do You Use Any Illicit Or Recreational Drugs? No Information not available 08/29/2020 Do You Use Sunscreen Routinely? Yes Information not available 08/29/2020 How Many Years Have You Smoked Tobacco? 18 Information not available 08/29/2020 Have You Used IV Drugs? No Information not available 08/29/2020 Sex: Unknown Functional Status Question Answer Note LastModified by Organization D etails LastModified Time Are you able to walk? YESWOREST Information not available 08/29/2020 What is your exercise level? Moderate Information not available 08/29/2020 Mental Status None recorded. Family History Relationship Description Onset Age of this Age Resolved Age Notes LastModified by Organization Details LastModified Time Maternal Grandmother Malignant tumor of pancreas [email or web address] Not available 2024 14:46:43 Maternal Grandmother Cyst of ovary [email or web address] Not available 2024 14:46:43 Maternal Grandmother Malignant tumor of breast Not available 2020 09:59:59 Maternal Grandfather Malignant tumor of lung Not available 2020 09:59:05 Paternal Grandfather Cerebrovascu lar accident Not available 11/2020 09:59:17 Mother Cyst of ovary Not available 2024 14:46:43 Sister Cyst of ovary [email or web address] Not available 2024 14:46:43 Maternal Aunt Malignant tumor of breast Not available 2020 09:59:59 Medical History Condition Response Allergies (Food, seasonal, environmental ) Y Anxiety Disorder Y Other Y Gestational Diabetes Y Depression/ depression Y History of STI Y History of abnormal pap Y Gynecological History Statement/Question Response Abnormal Pap N Flow Light Date of Last Mammogram 10/24/2019 Date of LMP 04/27/2024 On BCP's at Conception? N Was last menstrual period normal Y STIs/STDs Y HPV Vaccine N Colposcopy 06/13/2024 Current Control Method IUD 10/24/2019 13 Are cycles usually normal N Sexually Active? N Menses Monthly N Age of first menstrual cycle 11 Date of Last Pap Smear 05/16/2024 Sexual Problems? N LMP Approximate Obstetrics History GPAL:G 2 P 2 0 0 2 Type Value Full Term 2 Living 2 Total 2 Past Encounters Encounter ID Performer Location Encounter Start Date Encounter Closed Date Diagnosis/Indication Diagnosis SNOMED-CT Code Diagnosis ICD10 Code Diagnosis Note [id number] Gifty Hunter [facility] [address] [address] 08/29/2020 09:42:46 08/30/2020 15:45:06 Gynecologic examination 87142896 Z01.419 Suggested Calcium with Vitamin D 1200-1500m g daily. Patient advised to get an annual flu shot in the fall and she could obtain at [facility] or [facility] take care clinic. Also to obtain TDap vaccinatio n if you have not had one in the last 10 years. Recommend yearly mammograms . Encouraged monthly self breast exams. Encourage safe sexual practices, to use condoms and limit partners if not already in a monogamous relationsh ip. Engage in daily exercise of low impact aerobic exercise 45-60 minutes 4-5 times weekly. Avoid tobacco and illicit drugs as well as using moderation with alcohol intake less than 1-2 8 oz beverages daily. This lifestyle behavior pattern will lead to less health conditions and longer life span. If BMI greater than 25 weight watchers or dietary consult advised. All questions have been answered. Patient appears to understand informatio n, but if you have any questions please call or respond to this email. Pap/hpv updated Getting a divorce. 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 I have discussed in detail all risks and benefits including risk of infection and perforatio n. She understand s she will need to contact office with next menses or may abstain, complete serum HCG day before placement, if neg can have IUD placed next day. Aware of need to verify with insurance device coverage. Literature given. All questions answered to patient satisfacti on. Will call with next menses. [id number] Gifty Hunter , [facility] [address],[place] [address] 09/12/2020 11:44:32 09/12/2020 12:42:46 Insertion of intrauterine contraceptive device 09632805 Z30.430 She has been counseled on all of the r/b/a of placement of an intrauteri ne device that include but are not limited to uterine perforatio n, injury to cervix, vagina, bladder, and bowel.Risk s of bleeding due to injury or increased irregular bleeding due to progestin effect of the device. Risks of infection would be increased within the first 21 days of placement with concommita nt cervicitis . She understand s that the device will need to be removed in this instance due to increased risk of Pelvic inflammato ry disease. Patient is aware she is at higher risk for STD and if contracted she could lose her fertility. Pt is aware that if occurs that she should contact office immediatel y to rule out ectopic which could be life threatenin g. IUD will also need to be removed and this could cause miscarriag e. Patient also informed that in the event her strings are absent or embedded at the time of removal she may need to have the IUD surgically removed. She was informed of the above and properly consented. IUD placed w/o complicati on. Patient should return to office after next period to check for string placement. Patient to expect irregular bleeding but should be seen in the ED if bleeding increases to soaking a pad an hour for at least 2 hours. She verbalized understand ing. RTO x 6wks string check [id number] [facility] [address] [address] 10/29/2020 11:59:28 10/29/2020 13:15:02 Intrauterine device check [id number] Z30.431 Patient is here for 4-6wk IUD string check. She denies complicati ons, pain, but does reports some light brownish spotting on/off since placement. Barely enough to wear a pad or tampon yet it is there and annoying. Otherwise feels this device is a good choice for her. If BTB/spotti ng continues past 3mos we can do 1-2mos of SLYND if needed. Time spent in visit is a total of 15 mins with at least 50% of visit consisting of counseling and review of plan of care. Additional precaution jacinda measures were taken to minimize potential exposure to the Covid-19 virus during this patient s visit, including available hand med surg nurse upon arrive, temperatur e check and being asked a series of screening questions. All staff wore face coverings during this encounter, as well as provided additional cleaning and sanitizing of all surfaces, including countertop s, pens, chairs, door handles, light switches, etc, prior to and following the patient s visit. [id number] [place] Sofia Mullan [address] [address] 05/04/2023 12:15:53 05/04/2023 16:23:11 Gynecologic examination [id number] Z01.419 [facility] - mirena IUD, inserted 09/12/2020 - will 09/12/2028p ap updatedgc/ ct/trich testing added to papblood STI panel declinedma mmogram order given - encouraged to scheduleUT D with PCP for routine labsRTC in 1 yr or sooner if needed Suggested Calcium with Vitamin D daily. Patient advised to get an annual flu shot in the fall and she could obtain at [facility] or [facility] care clinic. Also to obtain TDap vaccinatio n if you have not had one in the last 10 years. Recommend yearly mammograms . Encouraged monthly self breast exams. Encourage safe sexual practices, to use condoms and limit partners if not already in a monogamous relationsh ip. Engage in daily exercise of low impact aerobic exercise 45-60 minutes 4-5 times weekly. Avoid tobacco and illicit drugs. This lifestyle behavior pattern will lead to less health conditions and longer life span. If BMI greater than 25 or dietary consult advised. All questions have been answered. Patient appears to understand informatio n, but if you have any questions please call or respond to this email. Screening for malignant neoplasm of breast 054704661 Z12.39 [id number] [facility] [address] [address] 05/20/2023 09:51:17 05/20/2023 14:31:25 Screening procedure 86238565 Z13.9 Low grade squamous intraepithelial lesion on cervical Papanicolaou smear [id number] 9105 R87.612 See procedure notes.Post -procedure instructio ns reviewed with understand ing verbalized .Will contact with results & next steps in plan of care. Counseled on Pap/HPV guidelines /Testing/R esults with understand ing verbalized .All questions answered to patient satisfacti on. Booklet & additional resources regarding pap smear/HPV/ Pap results given. https://ww w.cancer.g ov/types/c ervical/un derstandin g-abnormal -hpv-and-p ap-test-re sults/unde rstanding- cervical-c hanges.pdf [id number] [place] Sofia Mullan [address],[place] [address] 05/16/2024 14:45:38 05/16/2024 16:05:42 Gynecologic examination 64776312 Z11.51 Z11.3 [facility] - mirena IUDPap - updated todaySTI screen - declinedMa mmogram - UTDColon cancer screening - pt is going to obtain through [facility] - UTD/PC[facility]TC in 1 yr or sooner if needed Suggested Calcium with Vitamin D daily. Patient advised to get an annual flu shot in the fall and she could obtain at local pharmacy. Also to obtain TDap vaccinatio n if you have not had one in the last 10 years. Recommend yearly mammograms . Encouraged monthly self breast exams. Encourage safe sexual practices, to use condoms and limit partners if not already in a monogamous relationsh ip. Engage in regular exercise. Avoid tobacco and illicit drugs. This lifestyle behavior pattern will lead to less health conditions and longer life span. If BMI greater than 25 dietary consult advised. All questions have been answered. [id number] Dilshad Joseph MD Mullan [address],[facility] [place] [address] 06/13/2024 14:46:06 06/13/2024 17:21:10 Abnormal cervical Papanicolaou smear [id number] R87.619 colposcopy was performed. It was unsatisfac tory but normal. ECC was performed. She tolerated the procedure well. She will follow-up in 1 year for repeat Pap smear. [id number] Lisa Morales Mullan [address],[facility] [place] [address] 06/20/2024 12:26:19 06/22/2024 14:09:07 Menorrhagia 781983235 N92.0 Cervical intraepithelial neoplasia grade 2 [id number] N87.1 [id number] Dilshad Joseph MD Mullan [address],[facility] [place] [address] 08/29/2024 09:19:04 08/29/2024 11:03:05 Menorrhagia 729585481 N92.0 This patient is a 47-year-ol d female with severe menorrhagi a. We have agreed to perform robotic assisted hysterecto my with bilateral salpingo-o ophorectom y. She understand s the risks, benefits, and alternativ es. She has completed the informed consent process and is ready to proceed. Health Concerns Section Related Observation LastModified by Organization Detai ls LastModified Time None Recorded Concern Status LastModified by Organization Details LastModified Time None Recorded Advance Directives Directive N: Payers Encounter Date Sequence Insurance Name Policy Number Policy Robbins Covered Member ID Robbins Member ID Guarantor Name 05/20/2023 1 [id number] Daily L Shanda [id number] Daily L Shanda 05/16/2024 1 [id number] Daily L Shanda [id number] Daily L Shanda 06/13/2024 1 [place] [id number] Daily L Shanda [id number] Daily L Shanda 06/20/2024 1 [place] [id number] Daily L Shanda [id number] Daily L Shanda 08/29/2024 1 [place] [id number] Daily L Shanda [id number] Daily L Shanda Notes Date Note Type Note Provider Name and Address Organization Details Recorded Time 05/20/2023 text/html Here today for colposcopy for LGSIL pap/hpv 2022.Hx of abn pap almost 20yrs ago. Cleared on it's own per pt. [place] Hoyt- [address], [place], [address], [facility] 05/20/2023 14:27:05 05/16/2024 text/html Annual GYNReport ed bypatient.Menstrual cycle:Normal menses Urinary symptoms:No hematuria; No incontinence Vulva:No genital lesion Vagina:Normal vaginal discharge Breast:No breast pain; No breast lump; No nipple discharge Current Contraception:Satisf ied with current contraception; Intrauterine device (iud) Sexual complaints:No sexual complaints; No pain during intercourse; Normal libido Menopausal Symptoms:No menopausal symptoms; Normal vaginal lubrication Psychological symptoms:No depression; No anxiety; No PMDD Preventive measures:Encourage self breast examination; Encourage regular exercise; Encourage no tobacco use; Encourage regular mammograms starting age 38Notes:43yo wweBC - mirena IUD, inserted 1last pap 04/2023 : LSIL, HPV (+)colpo 04/2023 : benignmammogram UTD [place] Sofia [address], [place], [address], [facility] 05/16/2024 16:03:04 06/13/2024 text/html 43-year-old li chou presents for colposcopic examination. The procedure was explained to the patient in detail. She understands the procedure. She understands the risks, benefits, and alternatives. She has completed the informed consent process and is ready to proceed. Dilshad Joseph MD [address], [place], [address], [facility] 06/13/2024 17:05:03 08/29/2024 text/html This patient is a 47-year-old female with severe menorrhagia. We have agreed to perform robotic assisted hysterectomy with bilateral salpingo-oophorectom y. She understands the risks, benefits, and alternatives. She has completed the informed consent process and is ready to proceed. The patient understands the procedure. The procedure was described to the patient in great detail. the patient also understands the risks. The risks were also explained in detail. She understands that injuries May occur during surgery. She understands these injuries can result in hospitalization, more surgery, and severe illness. She understands there is risk of hemorrhage and infection. Dilshad Joseph MD [address], [place], [address], [facility] 08/29/2024 10:58:03 OBGyn Episode Ob Episode Information Episode Created Date Number of Fetuses Patient Bloodtype Patient rh Status Prepregnancy Weight lbs Domestic Partner Domestic Partner Phone Father Name Receipt And Report Clerk Status 08/30/19 21 1 CLOSED Fetus Data First Name Last Name Admitted to NICU Weight (g) Sex Living Outcome Pediatric Complications Fetus ID Race Codes Race Delivery Type 3486.76 [id number] F Full Term [id number] Vaginal Delivery Gordo Calculation Initial Gordo Date Initial Exam Date Initial Exam Provider Initial Ultrasound Date Last Menstrual Period Date Ultra Sound Weeks Gestation 0 Eighteen To Twenty Week Gordo Update Ultra Sound Date Fundal Height At Umbil Quickening Date Ultra Sound Latest Weeks Gestation Final Gordo Confirmed By Final Gordo Confirmed Date Final Gordo Date Ultra Sound Latest Days Gestation 0 0 Menstrual History Last Menstrual Date Menses Monthly On Bcp Conception Prior Menses Frequency Hcg Plus Date Menarche Onset Age Delivery Information Delivery Date Delivery Type Labor Anesthesia Weeks Gestation Incision Type Labor Labor Length Hrs Delivered By Post Complications Tubal Sterilization Discharge Date Comments 0 38 Discharge Information Feeding Method Contraceptive Method Maternal HG B and HCT Levels Ob Episode Information Episode Created Date Number of Fetuses Patient Bloodtype Patient rh Status Prepregnancy Weight lbs Domestic Partner Domestic Partner Phone Father Name Receipt And Report Clerk Status 08/30/19 21 1 CLOSED Fetus Data First Name Last Name Admitted to NICU Weight (g) Sex Living Outcome Pediatric Complications Fetus ID Race Codes Race Delivery Type 3259.96 [id number] F Full Term [id number] Vaginal Delivery Gordo Calculation Initial Gordo Date Initial Exam Date Initial Exam Provider Initial Ultrasound Date Last Menstrual Period Date Ultra Sound Weeks Gestation 0 Eighteen To Twenty Week Gordo Update Ultra Sound Date Fundal Height At Umbil Quickening Date Ultra Sound Latest Weeks Gestation Final Gordo Confirmed By Final Gordo Confirmed Date Final Gordo Date Ultra Sound Latest Days Gestation 0 0 Menstrual History Last Menstrual Date Menses Monthly On Bcp Conception Prior Menses Frequency Hcg Plus Date Menarche Onset Age Delivery Information Delivery Date Delivery Type Labor Anesthesia Weeks Gestation Incision Type Labor Labor Length Hrs Delivered By Post Complications Tubal Sterilization Discharge Date Comments 4 40 Discharge Information Feeding Method Contraceptive Method Maternal HG B and HCT Levels
--- OUTSIDE RECORDS SUMMARY | 2024-08-31 00:24 | XMS_ITS | Encounter Summary ---
Author Organization [facility] Address [facility] [place] [address] Care Team Providers Care Accounting Auditor Name Role Phone Hattie Ivory [facility] Primary Care Provider + Encounter Details Date Type Department Care Team (Late st Contact Info) Description 05/19/2023 Letsdecco Message [facility] Family & Internal Medicine [facility] [address] [place] [id number] 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[employer] ASSESSOR Sexual Orientation Straight 06/17/2021 1: 51 PM M[employer]OW[employer] ASSESSOR documented as of this encounter Plan of Treatment Not on file documented as of this encounter Visit Diagnoses Not on filedocumented in this encounter Additional Health Concerns Infection Onset Date Last Indicated Resolved Time COVID-19 Rule Out 07/24/2023 07/24/2023 07/24/2023 9:15 AM M[employer]I TOWNS[employer]IP ASSESSOR Assessment Noted Time PHQ-9 Depression Total Score: 7 05/13/20 9:31 AM M[employer]I TOWNS[employer]IP ASSESSOR documented as of this encounter Care Teams Accounting Auditor Relationship Specialty Start Date End Date Hattie Ivory, [employer]- [id number], [address] [place] [address] [phone] PCP - General Nurse Practitioner Family 03/23/23 documented as of this encounter
--- OUTSIDE RECORDS SUMMARY | 2024-08-31 00:24 | XMS_ITS | Encounter Summary ---
Author Organization [facility] Address [facility] [place] [address] Care Team Providers Care Director Of Curriculum Name Role Phone Holli Cedeño Primary Care Provider [phone] Hattie Ivory [facility] Primary Care Provider + Encounter Details Date Type Department Care Team (Late st Contact Info) Description 06/17/2021 [employer] Message Enc [facility] Medical Group Family & Internal Medicine [facility] [address] [place] [address] Holli Cedeño [place] [address] [place] [address] [phone] Possible blood clot Social History Tobacco Use [...] CDT Gender Identity Female 06/17/2021 1:51 PM LECTURER IN COMPUTER SCIENCE Sexual Orientation Straight 06/17/2021 1: 51 PM LECTURER IN COMPUTER SCIENCE COVID-19 Exposure Response Date Recorded In the last month, have you been in contact with someone who was confirmed or suspected to have Coronavirus / COVID-19? No / Unsure 06/17/2021 4:04 PM LECTURER IN COMPUTER SCIENCE documented as of this encounter Progress Notes * Dee Rosa MA - 06/17/2021 3:27 PM CST Offered appointment to patient today, patient is unable to get anyone to cover her shift today. Patient aware to use ER if symptoms get worse. URER IN COMPUTER SCIENCE documented in this encounter Plan of Treatment Not on file documented as of this encounter Visit Diagnoses Not on filedocumented in this encounter Additional Health Concerns Infection Onset Date Last Indicated Resolved Time COVID-19 Rule Out 10/11/2021 10/11/2021 10/11/2021 3:16 PM CDT COVID-19 Rule Out 07/24/2023 07/24/2023 07/24/2023 9:15 AM LECTURER IN COMPUTER SCIENCE Assessment Noted Time PHQ-9 Depression Total Score: 0 04/04/20 21 7:48 AM LECTURER IN COMPUTER SCIENCE documented as of this encounter Care Teams Director Of Curriculum Relationship Specialty Start [place] [address] [place] [address] PCP - General PHYSICIAN MASTER SCHEDULER 10/05/19 03/22/23 Hattie Ivory, MANAGER OF SCHOOL- [address], [address] [place] [address] PCP - General Nurse Practitioner Family 03/23/23 documented as of this encounter
--- OUTSIDE RECORDS SUMMARY | 2024-08-31 00:24 | XMS_ITS | Encounter Summary ---
Author Organization [facility] Address [facility] [place] [address] Care Team Providers Care Supervisor Instant Potato Processing Name Role Phone Hattie Ivory [facility] Primary Care Provider + Encounter Details Date Type Department Care Team (Late st Contact Info) Description 08/16/2023 [employer] Message [facility] Medical Group Family & Internal Medicine [facility] [address] [place] [address] [place] [address] [place] [address] Anxiety meds. Social History Tobacco [...] CDT Gender Identity Female 06/17/2021 1:51 PM COUNTY ADVISER Sexual Orientation Straight 06/17/2021 1: 51 PM COUNTY ADVISER documented as of this encounter Plan of Treatment Not on file documented as of this encounter Visit Diagnoses Not on filedocumented in this encounter Additional Health Concerns Assessment Noted Time PHQ-9 Depression Total Score: 7 05/13/20 23 9:31 AM COUNTY ADVISER documented as of this encounter Care Teams Supervisor Instant Potato Processing Relationship Specialty Start Date End Date Hattie Ivory, IMPLEMENTATION ANALYST- [address], [address] [place] [id number] PCP - General Nurse Practitioner Family 03/23/23 documented as of this encounter
--- OUTSIDE RECORDS SUMMARY | 2024-08-31 00:24 | XMS_ITS | Encounter Summary ---
Author Organization [facility] Address [facility] [place] [address] Care Team Providers Care Hardware Supplies Sales Representative Name Role Phone Hattie Ivory [facility] Primary Care Provider + Encounter Details Date Type Department Care Team (Late st Contact Info) Description 01/18/2024 [employer] Message Enc [facility] Medical Group Family & Internal Medicine [facility] [address] [place] [address] Mary[facility] Provider Roge Social History Tobacco Use Types [...] CDT Gender Identity Female 06/17/2021 1:51 PM LENS MARKER Sexual Orientation Straight 06/17/2021 1: 51 PM LENS MARKER documented as of this encounter Progress Notes [...] send script to pharm so she can slate picker now * FREDDIE Diallo - 01/19/2024 12:22 [...] documented as of this encounter Care Teams Hardware Supplies Sales Representative Relationship Specialty Start Date End Date Hattie Ivory FNP-BC [address], [address] [place] [address] PCP - General Nurse Practitioner Family 03/23/23 documented as of this encounter
--- OUTSIDE RECORDS SUMMARY | 2024-08-31 00:24 | XMS_ITS | Encounter Summary ---
Author Organization [facility] Address [facility] [place] [address] Care Team Providers Care Forestry Fire Aide Name Role Phone Hattie Ivory [facility] Primary Care Provider + Encounter Details Date Type Department Care Team (Late st Contact Info) Description 06/03/2023 OMG Message [employer] [facility] Medical Group Family & Internal Medicine [facility] [address] [place] [address] [email or web address] Provider records Social History Tobacco Use Types [...] CDT Gender Identity Female 06/17/2021 1:51 PM HAND POTTER Sexual Orientation Straight 06/17/2021 1: 51 PM HAND POTTER documented as of this encounter Plan of Treatment Not on file documented as of this encounter Visit Diagnoses Not on filedocumented in this encounter Additional Health Concerns Infection Onset Date Last Indicated Resolved Time COVID-19 Rule Out 07/24/2023 07/24/2023 07/24/2023 9:15 AM HAND POTTER Assessment Noted Time PHQ-9 Depression Total Score: 7 05/13/20 9:31 AM HAND POTTER documented as of this encounter Care Teams Forestry Fire Aide Relationship Specialty Start Date End Date Hattie Ivory, LIBRARY SCIENCE PROFESSOR- [address], [address] [place] [phone] PCP - General Nurse Practitioner Family 03/23/23 documented as of this encounter
--- OUTSIDE RECORDS SUMMARY | 2024-08-31 00:24 | XMS_ITS | Encounter Summary ---
Author Organization [facility] Address [facility] [place] [address] Care Team Providers Care Steam Tunnel Feeder Name Role Phone Holli Cedeño Primary Care Provider [phone] Hattie Ivory [facility] Primary Care Provider + Encounter Details Date Type Department Care Team (Late st Contact Info) Description 08/13/2021 [email or web address] Message Enc [facility] Medical Group Family & Internal Medicine [facility] [address] [place] [address] Holli Cedeño [place] [id number] [place] [address] [phone] Right hand Social History Tobacco Use Types [...] CDT Gender Identity Female 06/17/2021 1:51 PM SHEEP KILLER Sexual Orientation Straight 06/17/2021 1 :51 PM SHEEP KILLER documented as of this encounter Plan of Treatment Not on file documented as of this encounter Visit Diagnoses Not on filedocumented in this encounter Additional Health Concerns Infection Onset Date Last Indicated Resolved Time COVID-19 Rule Out 10/11/2021 10/11/2021 10/11/2021 3:16 PM CDT COVID-19 Rule Out 07/24/2023 07/24/2023 07/24/2023 9:15 AM SHEEP KILLER Assessment Noted Time PHQ-9 Depression Total Score: 0 04/04/20 7:48 AM SHEEP KILLER documented as of this encounter Care Teams Steam Tunnel Feeder Relationship Specialty Start [place] [address] [place] [address] PCP - General PHYSICIAN CERTIFIED ADAPTIVE PHYSICAL EDUCATOR 10/05/19 03/22/23 Hattie Ivory, ADMINISTRATOR- [address], [facility] [address] [place] [address] PCP - General Nurse Practitioner Family 03/23/23 documented as of this encounter
--- OUTSIDE RECORDS SUMMARY | 2024-08-31 00:24 | XMS_ITS | Clinical Summary ---
Author Organization [facility] Address [facility] [place] [address] Care Team Providers Care Certified Nursing Assistant Instructor Name Role Phone Kayden Hankins [facility] Primary Care Provider + Allergies Active [...] female, associated with anovulation;Recorded Elsewhere: No Location: [facility] Source: EHR Chronic: N Practice ID: [id number] Billable Time: 04:00:00 PM Female infertility of tubal origin;Recorded Elsewhere: No Location: [facility] Source: EHR Chronic: N Practice ID: [id number] Billable Time: 09:00:00 AM Metrorrhagia 08/03/2012 Dyspareunia 06/28/2012 Menopausal symptom 06/27/2012 Overview (08/31/2023): Menopausal or female climacteric states;Recorded Elsewhere: No Location: [facility] Source: EHR Chronic: N Practice ID: [id number] [...] Description 08/08/2024 3:00 PM CDT Office Visit [facility] Medical Group Family & Internal Medicine [address] [address] Rachael Reagan NP Follow Up (Medication management); Fall (Patient had a fall 3 weeks and landed on her right hip. Still having pain and swelling ) 08/08/2024 Travel from Last 3 Months Immunizations Name Administration Dates Next Due Fluzone Adult - >Age 3 (Pref illed Syringe) 07/11/2020(Deferred: Patient Refused) Placester ([employer]) COVID-19 AD26 VACCINE 0.5 ML IM SUSP [...] CDT Gender Identity Female 06/17/2021 1:51 PM FOUR H AGENT Sexual Orientation Straight 06/17/2021 1: 51 PM FOUR H AGENT Last Filed Vital Signs Vital Sign Reading [...] COVID-19 Vaccine (2 - season) 2024 03/20/2021 PHQ-2 (Physician [place]) 05/25/2024 12/24/2023 Mammogram Screening 03/08/2026 03/08/2024, 01/15/2022, [...] 4:15 PM Narrative 03/08/2024 4:18 PM CDT [facility] [address] [place] [address] EXAMINATION: Digital bilateral screening mammogram with 3-D [...] either breast to suggest malignancy. Kayden Hankins SCHEDULING SPECIALIST-BC MAMMO Final Re sult * PAP SMEAR WITH HPV (08/29/2020) 08/29/2020 us Documents Scanned SCANNING Final Result [facility] from Last 3 Months or Most Recently Relevant to Health Maintenance Insurance [facility] Care Teams Certified Nursing Assistant Instructor Relationship Specialty Start Date End Date Kayden Hankins, SCHEDULING SPECIALIST- [address] [facility] [address], [address] [place] [address] PCP - General Nurse Practitioner Family 03/23/23
[2024-08-31 06:59] LABS: BEDSIDEPREGUCG Negative (Negative)
[2024-08-31] MEDS: LACTATED RINGERS 1,000 ML 30 ML IV CONT ×2 (07:00→09:27)
[2024-08-31] MEDS: ACETAMINOPHEN 500 MG TABLET 1000 MG PO ×4 (07:01→23:34)
[2024-08-31] MEDS: KETOROLAC 15 MG/ML VIAL (*BKC) IV PUSH (07:02)
--- NOTE | 2024-08-31 07:14 | WPDANESEPPF ---
Anes - Initial Pre Proc Eval Procedure: Operation Date: 08/31/24 07:30 Proposed Procedures p Robotic Assisted Hysterectomy with Bilateral Salpingo-oophorectomy - Dilshad Joseph MD Date/Time: 08/31/24 07:14 Surgeon: Dilshad Joseph MD Pre Op Diagnosis: Menorrhagia Patient Data Age: 43 Gender: F Height: 1.66 m Weight: 85.95 kg Last Vital Signs Temp 36.2 C L 08/31/24 06:10 Pulse 95 08/31/24 06:10 Resp 18 08/31/24 06:10 BP 111/75 08/31/24 06:10 Pulse Ox 97 08/31/24 06:10 O2 Del Method Room Air 08/31/24 06:10 Allergies Allergy/AdvReac Type Severity Reaction Status Date / Time prochlorperazine Allergy Intermediate Muscle Verified 08/31/24 06:21 Spasms Home Medications ?Medication ?Instructions ?Recorded ?Confirmed ?Type albuterol sulfate 90 mcg/actuation 2 inh inhalation Q4-6H PRN 08/25/24 08/25/24 History aerosol inhaler shortness of breath or wheezing amitriptyline 50 mg tablet 100 mg PO HS 08/25/24 08/31/24 History buspirone 15 mg tablet 15 mg PO BID 08/25/24 08/31/24 History lorazepam 1 mg tablet 1 mg PO Q8H PRN anxiety 08/25/24 08/31/24 History montelukast 10 mg tablet 10 mg PO DAILY PRN allergy symptoms 08/25/24 08/31/24 History (Singulair) Laboratory Tests 08/31/24 06:20 POC Urine HCG, Qual Negative (Negative) Patient hx anesthesia problems: none Family hx anesthesia problems: none Results Review: All pre-operative results and documents have been reviewed as part of the pre-operative evaluation. COUNT INCLUDES THE [facility] Past Medical History Medical History No active medical problems Social History Social History Smoking packs per day: 0.5 Smoking cigarettes per day: 10.0 Years smoked: 30 Smoking pack-years: 15.00 Smoking status: Former smoker Tobacco type: cigarettes Alcohol intake: current Drinks per week: 6 Substance use: never Substance use type: marijuana Other substance usage details: DAILY-HS Living arrangements: with family Aneeayl - Evyael Final PreProcedure Day of Procedure 08/31/24 07:14 Patient weight: obese Heart: regular rate and rhythm Lungs: clear to auscultation Airway: Mallampati scale class II Neurological: alert and oriented Last oral intake: >/= 8 hours ASA classification: II Emergent: no Anesthetic plan: proceed Anesthesia type and monitoring: general ETT and standard monitoring Results Review: All pre-operative results and documents have been reviewed as part of the pre-operative evaluation. Informed Consent: The patient's anesthetic plan and its attendant risks and benefits were discussed with the patient/family/POA. Questions were solicited and answers provided to the satisfaction of the patient/family/POA.
--- NOTE | 2024-08-31 07:18 | WPDHPUPDATE1 ---
History and Physical Update Update Date/Time: 08/31/24 07:18 History and Physical has been reviewed, including an updated exam of the patient. There are NO changes in the patient's condition. Risks, benefits, and alternatives have been discussed and questions answered. Patient agrees to proceed with procedure.
[2024-08-31] MEDS: ceFAZolin 2 GM/D5W 50 ML 2 GM/50 ML BAG IVPB (07:30)
[2024-08-31] MEDS: METHYLENE BLUE 0.5% INJ 10 ML AMPULE 20 ML IRRIGATION (09:01)
--- NOTE | 2024-08-31 09:26 | W.PM.PROC2 ---
Procedure Note - Detailed Date of Procedure 08/31/24 Pre-op Diagnosis Menorrhagia Post-op Diagnosis Same Procedure Performed Robot assisted Total hysterectomy with bilateral salpingectomy. Surgeon Dilshad Joseph MD Anesthesia General Indications heavy vaginal bleeding, pelvic pain Findings normal-appearing uterus, ovaries, and fallopian tubes. Description of Procedure This patient was taken to the operating room. She was prepped and draped in the dorsal lithotomy position after induction of general anesthesia. The uterine manipulator and Jovan cup were placed. This was done with a speculum and tenaculum. The speculum was placed. The cervix was grasped with a tenaculum. The stay sutures were placed at 3 and 9:00 a.m.. The stay sutures of 0 Vicryl were tied to the appropriately Size scope after it was slipped around the cervix.. The tip of the [place] manipulator was placed in the intrauterine cavity. The cup was slid into place around the cervix and into the fornices. It was locked into place. The sutures were then wrapped around the handle and tied under tension. A 8 mm skin incision was made in the left upper quadrant the abdomen. a 5 mm Visiport trocar was inserted into abdominal cavity and pneumoperitoneum was achieved. A 8 mm supraumbilical incision was made and a 8 mm trocar was inserted into the intrauterine cavity under direct visualization of the scope. an 8 mm incision was made in the right upper quadrant of the abdomen and an 8 mm robotic trocar was placed the inter uterine cavity under direct visualization the scope. An 11 mm trocar was inserted in the right upper quadrant of the abdomen rectal is a cystoscope after an incision was made there as well. The robot was docked. Electronic Orientation of the robot was performed. Bilateral ureteral lysis was performed. This was done from the pelvic brim down to the uterine artery. This was done with careful dissection using sharp and blunt dissection.Bilateral salpingo-oophorectomy was performed. The bilateral infundibulopelvic ligaments were cauterized thoroughly and transected after visualization of the ureter passing over the pelvic brim. In stepwise fashion around the ovary the mesosalpinx was cauterized transected. The Fallopian tube tissue/ mesosalpinx was cauterized transected a stepwise fashion medially to the cornua of the uterus. the tube was transected at the cornua and cauterized thoroughly. The bilateral tubes and ovaries were taken out through the large air lock port. Then In a stepwise fashion along the lateral aspects of the uterus the round ligament and broad ligaments were cauterized transected down to the level of the uterine arteries. A bladder flap was created in the bladder was moved distally to the end of the cervix and over the Jovan cup. The bilateral uterine arteries were cauterized and transected. Colpotomy was then performed. In a circumferential fashion the vagina was transected using unipolar cautery. The incision was made down on the Jovan cup. The uterus and cervix were taken out through the vagina. A pneumo occluder was placed in the vagina. The vaginal cuff was closed with a 0 V lock suture in a running fashion. The pelvis was irrigated with copious amounts antibiotic irrigation. The ureters were again examined and found to be intact and flowing freely under the uterine arteries into the bladder. The bladder was intact. It was examined directly. Cystoscopy was performed after administration of methylene blue. The cystoscope was inserted. Bladder was distended with fluid. The ureteric meatus was observed bilaterally. Blue fluid was seen to egress bilaterally. The bladder was drained and the cystoscope was withdrawn. The vagina was irrigated with Betadine solution after removal of the Pneumo occluder. the trocars were removed after the robot was undocked. The skin was closed with subacute or Dermabond. The patient was taken to recovery room. She was stable condition. Sponge lap and needle counts were correct x2. Estimated Blood Loss 125 Urine Output 800 Drains Yes Packing No Pathology Yes Complications No immediate complications Condition Stable Disposition Floor
[2024-08-31] MEDS: fentaNYL CITRATE INJ (*CRX) 100 MCG/2 ML VIAL 25 MCG IV PUSH ×4 (10:05→10:48)
[2024-08-31] MEDS: KETOROLAC 30 MG/ML VIAL (*BKC) IV PUSH ×3 (11:31→23:33)
[2024-08-31] MEDS: SIMETHICONE 80 MG TAB.CHEW PO ×2 (11:31→17:09)
[2024-08-31] MEDS: DEXTROSE 5%/0.45% SOD CHL 1,000 ML 125 ML IV CONT (11:31)
[2024-08-31] MEDS: ESTRADIOL 7 DAY 0.1 MG PATCH TRANSDERM (13:14)
[2024-08-31] MEDS: oxyCODONE HCL (*CRX) 5 MG TAB IR 10 MG PO ×2 (13:16→20:02)
[2024-08-31] MEDS: diphenhydrAMINE HCl CAP 25 MG CAPSULE PO ×2 (14:49→23:35)
[2024-08-31] MEDS: busPIRone HCL 5 MG TABLET 15 MG PO (17:09)
[2024-08-31] MEDS: DOCUSATE SODIUM 100 MG CAPSULE PO (17:09)
[2024-08-31] MEDS: AMITRIPTYLINE HCL 25 MG TABLET 100 MG PO (20:03)
[2024-09-01] MEDS: ACETAMINOPHEN 500 MG TABLET 1000 MG PO (05:07)
[2024-09-01] MEDS: oxyCODONE HCL (*CRX) 5 MG TAB IR 10 MG PO (05:07)
[2024-09-01] MEDS: IBUPROFEN 600 MG TABLET PO (05:08)
[2024-09-01 05:12] VITALS: BP 105/73; PULSE 66; RESP 16; TEMP 36.4; O2SAT 99
[2024-09-01] MEDS: DOCUSATE SODIUM 100 MG CAPSULE PO (07:58)
[2024-09-01] MEDS: SIMETHICONE 80 MG TAB.CHEW PO (07:58)
[2024-09-01] MEDS: busPIRone HCL 5 MG TABLET 15 MG PO (07:59)
[2024-09-01 08:00] VITALS: PULSE 74; RESP 16; O2SAT 99
--- NOTE | 2024-09-01 08:21 | P.PNOB_ITS ---
AUDIOVISUAL PRODUCTION SPECIALIST - A/P Postoperative Procedures: Procedures Operation Date: 08/31/24 07:30 Actual Procedure Side Surgeon p Robotic Assisted Hysterectomy with Bilateral Salpingo-oophorectomy Bilateral Dilshad Joseph MD Postoperative day: 1 Postoperative status: doing well Postoperative plan: see orders Time Spent With Patient Time: Total time spent is greater than 50% in coordination of care (as documented) at patient's floor/unit and/or counseling patient: Time with patient: less than 15 minutes AUDIOVISUAL PRODUCTION SPECIALIST- PN:Subj Post-Op Subjective Date/time seen: 09/01/24 08:21 Subjective: patient reports feeling better, patient has no complaints and pain is well controlled Exam Const: General: healthy appearing, comfortable and no acute distress Resp: Auscultation: clear to auscultation bilaterally, no rales, no rhonchi and no wheezes Cardio: Rate: regular rate Heart sounds: no click, no murmurs and no rubs GI: Inspection: non-distended Auscultation: normal bowel sounds Extrem: General: normal to inspection, no pedal edema and no calf tenderness AUDIOVISUAL PRODUCTION SPECIALIST - PN: Obj Data Vital Signs Vital Signs: Vital Signs - 24 hr 08/31/24 09:27 08/31/24 09:30 08/31/24 09:45 Temperature 97.0 F L Pulse Rate 100 90 89 Respiratory Rate 22 H 21 H 19 Blood Pressure 122/73 125/90 136/84 Pulse Oximetry 100 98 99 Oxygen Delivery Non-Rebreather Mask Non-Rebreather Mask Non-Rebreather Mask Oxygen Flow Rate 8 8 8 08/31/24 10:00 08/31/24 10:05 08/31/24 10:15 Temperature Pulse Rate 84 82 Respiratory Rate 18 18 Blood Pressure 151/87 H 152/95 H Pulse Oximetry 98 92 92 Oxygen Delivery Non-Rebreather Mask Nasal Cannula Nasal Cannula Oxygen Flow Rate 8 2 2 08/31/24 10:30 08/31/24 10:42 08/31/24 11:00 Temperature 97 F L Pulse Rate 81 76 82 Respiratory Rate 18 18 18 Blood Pressure 150/98 H 135/90 137/88 Pulse Oximetry 95 97 92 Oxygen Delivery Nasal Cannula Nasal Cannula Oxygen Flow Rate 2 2 08/31/24 17:00 08/31/24 17:00 08/31/24 21:00 Temperature 98.7 F 99.1 F Pulse Rate 78 69 Respiratory Rate 16 14 Blood Pressure 119/79 121/69 Pulse Oximetry 96 94 Oxygen Delivery Room Air Oxygen Flow Rate 08/31/24 21:00 08/31/24 23:43 09/01/24 05:12 Temperature 98 F 97.6 F Pulse Rate 69 77 66 Respiratory Rate 14 16 16 Blood Pressure 119/75 105/73 Pulse Oximetry 94 94 99 Oxygen Delivery Room Air Oxygen Flow Rate Intake/Output Intake/Output: Intake & Output 08/29/24 08/30/24 08/31/24 09/01/24 23:59 23:59 23:59 23:59 Intake Total 1630 Output Total 2100 Balance -470 Meds/Results Medications: Active Medications Generic Name Dose Route Start Last Admin Trade Name Freq PRN Reason Stop Dose Admin Acetaminophen 1,000 mg 08/31/24 12:00 09/01/24 05:07 Acetaminophen 500 Mg Tablet PO 1,000 mg Q6HR SAMY Administration Albuterol 2 puff 08/31/24 10:50 Albuterol Sulfate (*Sp) Aerosol 1 Puff INHALATION Q4-6H PRN shortness of breath or wheezing Amitriptyline HCl 100 mg 08/31/24 21:00 08/31/24 20:03 Amitriptyline Hcl 25 Mg Tablet PO 100 mg HS SAMY Administration Buspirone HCl 15 mg 08/31/24 17:00 09/01/24 07:59 Buspirone Hcl 5 Mg Tablet PO 15 mg BID SAMY Administration Diphenhydramine HCl 25 mg 08/31/24 14:42 08/31/24 23:35 Diphenhydramine Hcl Cap 25 Mg Capsule PO 25 mg Q6H PRN Administration Itching Docusate Sodium 100 mg 08/31/24 17:00 09/01/24 07:58 Docusate Sodium 100 Mg Capsule PO 100 mg BID SAMY Administration Estradiol 0.1 mg 09/01/24 09:00 Estradiol 7 Day 0.1 Mg Patch TRANSDERM Q7D SAMY Dextrose/Sodium Chloride 1,000 mls @ 125 mls/hr 08/31/24 10:50 08/31/24 11:31 Dextrose 5% Sodium Chloride 0.45% IV CONT 125 mls/hr .Q8H SAMY Administration Ibuprofen 600 mg 09/01/24 06:00 09/01/24 05:08 Ibuprofen 600 Mg Tablet PO 600 mg Q6HR SAMY Administration Naloxone HCl 0.1 mg 08/31/24 10:50 Naloxone Hcl 0.4 Mg/Ml Vial IV PUSH Q2M PRN Respiratory rate less than 10 Ondansetron HCl 4 mg 08/31/24 10:50 Ondansetron Inj 4 Mg/2 Ml Vial IV PUSH Q6H PRN Nausea And Vomiting Oxycodone HCl 5 mg 08/31/24 10:50 Oxycodone Hcl (*Crx) 5 Mg Tab Ir PO Q4H PRN Pain Rated 4-6 Oxycodone HCl 10 mg 08/31/24 10:50 09/01/24 05:07 Oxycodone Hcl (*Crx) 5 Mg Tab Ir PO 10 mg Q6H PRN Administration Pain Rated 7-10 Simethicone 80 mg 08/31/24 12:00 09/01/24 07:58 Simethicone 80 Mg Tab.Chew PO 80 mg TIDWM SAMY Administration
[2024-09-01 08:25] VITALS: BP 107/84; PULSE 74; RESP 16; TEMP 36.7; O2SAT 99
[2024-09-01] MEDS: ESTRADIOL 7 DAY 0.1 MG PATCH TRANSDERM (09:44)
--- NOTE | 2024-09-01 10:31 | WPDANESPN ---
Anes - Prog Note Post-Op Date/Time: 09/01/24 10:31 Cardiovascular status: normal Respiratory status: normal Airway patency: baseline Mental status: baseline Vital Signs: Last Vital Signs Temp 36.7 C 09/01/24 08:25 Pulse 74 09/01/24 08:25 Resp 16 09/01/24 08:25 BP 107/84 09/01/24 08:25 Pulse Ox 99 09/01/24 08:25 O2 Del Method Room Air 09/01/24 08:00 O2 Flow Rate 2 08/31/24 10:42 Pain Score (VAS): 3 I/O: Intake & Output 08/31/24 09/01/24 09/01/24 23:59 07:59 15:59 Intake Total 480 Output Total 900 Balance -420 Patient Feedback: Patient satisfied with anesthetic care.
== END 2024-09-01 10:02 | disposition home or self-care (01) ==
LOC: ANHSURGERY 06:01 → ANHOB2 10:54
PROVIDERS: Visit Provider Obstetrics & Gynecology
PROC: (CPT 58571; principal; 2024-08-31 07:30)
DX: N88.8 Other specified noninflammatory disorders of cervix uteri (principal); N73.6 Female pelvic peritoneal adhesions (postinfective); G89.18 Other acute postprocedural pain; F41.9 Anxiety disorder, unspecified; F32.A Depression, unspecified; F12.90 Cannabis use, unspecified, uncomplicated; E66.9 Obesity, unspecified; Z68.31 Body mass index [BMI] 31.0-31.9, adult; Z79.51 Long term (current) use of inhaled steroids; Z98.890 Other specified postprocedural states; Z98.51 Tubal ligation status; Z97.5 Presence of (intrauterine) contraceptive device; Z87.891 Personal history of nicotine dependence; Z80.0 Family history of malignant neoplasm of digestive organs; Z80.3 Family history of malignant neoplasm of breast; Z80.1 Family history of malignant neoplasm of trachea, bronchus and lung; Z82.49 Family history of ischemic heart disease and other diseases of the circulatory system
CPT/HCPCS: 58571; S2900; 88307; 99199; A9270; J0690; J1100; J1885; J2003; J2250; J2405; J2704; J3010; J7030; J7120; Q9968

== ENCOUNTER 2025-05-13 12:35 | Emergency (ER) | payer BC, SELFPAY ==
--- NOTE | ~2025-05-13 | XR_ITS ---
Examination: XR hand RT min 3V Clinical History: DOG BITE, PAIN Comparison: None Technique: 3 views right hand Findings/impression: 1. No radiopaque foreign body. 2. No fracture or other acute bony abnormality Reviewed, dictated and finalized at location [facility]
[2025-05-13 12:57] VITALS: BP 103/69; PULSE 61; RESP 16; TEMP 36.4; O2SAT 98
--- NOTE | 2025-05-13 13:59 | ED.ANIMALBIT ---
HPI - Animal Bite General Chief Complaint: Animal Bite Stated Complaint: Animal Bite Source: patient Mode of arrival: ambulatory Limitations: no limitations History of Present Illness HPI narrative: Pt presents for evaluation of right hand pain. She indicates her dog attacked her in bed last night without any provoking event. She sustained several bit wounds to her right hand. She used superglue and steri-strips to close the wounds. She notes persistent pain in the right hand. She does not provide me with a descriptive quality or numerical rating to the pain. She is not diabetic. Dog is UTD on vaccinations. Patient's last tetanus was in 2019. She is right hand dominant. Related Data Home Medications ?Medication ?Instructions ?Recorded ?Confirmed ?Last Taken ?Type albuterol sulfate 90 mcg/actuation 2 inh inhalation Q4-6H PRN 08/25/24 08/25/24 Unknown History aerosol inhaler shortness of breath or wheezing buspirone 15 mg tablet 15 mg PO BID 08/25/24 08/31/24 08/30/24 History lorazepam 1 mg tablet 1 mg PO Q8H PRN anxiety 08/25/24 08/31/24 08/31/24 History montelukast 10 mg tablet 10 mg PO DAILY PRN allergy symptoms 08/25/24 08/31/24 08/30/24 History (Singulair) amitriptyline 100 mg tablet mg 05/13/25 Unknown History clonidine HCl 0.1 mg tablet mg 05/13/25 Unknown History estradiol 1 mg tablet mg 05/13/25 Unknown History fluoxetine 20 mg capsule mg 05/13/25 Unknown History trazodone 50 mg tablet mg 05/13/25 Unknown History Allergies Allergy/AdvReac Type Severity Reaction Status Date / Time prochlorperazine AdvReac Intermediate Muscle Verified 05/13/25 12:57 Spasms Review of Systems Review of Systems: CONSTITUTIONAL: Denies fever, chills, or sweats. EYES: Denies visual changes, redness, or discharge. ENT: Denies rhinorrhea, congestion, sore throat, or otalgia. CARDIOVASCULAR: Denies chest pain, palpitations, or edema. RESPIRATORY: Denies cough or dyspnea. GASTROINTESTINAL: Denies abdominal pain, nausea, vomiting, or diarrhea. GENITOURINARY: Denies dysuria or hematuria. SKIN: Reports dog bites to right hand MUSCULOSKELETAL: reports pain in the right hand NEUROLOGIC: Denies headache, numbness, dizziness, or weakness. PSYCHIATRIC: Denies anxiety or depression. REPLACED BY [facility] Past Medical History Medical History Depression Anxiety Surgical History Surgical History No pertinent past surgical history Family History Family History Mother Family history non-contributory Social History Social History Smoking packs per day: 0.5 Smoking cigarettes per day: 10.0 Years smoked: 30 Smoking pack-years: 15.00 Smoking status: Former smoker Tobacco type: cigarettes Alcohol intake: current Drinks per week: 6 Substance use: never Substance use type: marijuana Other substance usage details: DAILY-HS Living arrangements: with family Exam Narrative: GENERAL: Well-appearing, well-nourished, and in no acute distress. HEAD: Normocephalic, atraumatic. EYES: PERRLA and EOMI. ENT: Nares clear, no rhinorrhea or epistaxis. Mucous membranes moist. Oropharynx without tonsillar hypertrophy exudate or other lesions. Bilateral TMs pearly spain nonbulging NECK: Supple. No adenopathy or masses. No carotid bruits or JVD CHEST: Clear to auscultation. No respiratory distress. No wheezes rales or rhonchi HEART: Regular rate and rhythm. No murmur heard. Normal peripheral pulses. ABDOMEN: Soft, nontender, nondistended, normal active bowel sounds. EXTREMITIES: Normal range of motion. No edema. SKIN: There are several puncture wounds to right hand that are approximated with steri-strips which are RICKI. There are several abrasions to right hand with dried sanguinous drainage present NEURO: No focal deficits. Alert and oriented x3. PSYCH: Normal mood and affect. Course Course Emergency Course: this is a 44-year-old female who presented for evaluation of dog bites to the right hand. Wounds are ready well approximated. Will start Augmentin. Given tetanus shot. patient states that she is safe at home and dogs and another safe space. Follow up with primary provider. Go to the ER for worsening symptoms. Patient in agreement with plan of care. Level of Care: Express Care Visit Vital Signs Vital signs: Vital Signs Temperature 36.4 C 05/13/25 12:57 Pulse Rate 61 05/13/25 12:57 Respiratory Rate 16 05/13/25 12:57 Blood Pressure 103/69 05/13/25 12:57 Pulse Oximetry 98 05/13/25 12:57 Temperature 36.4 C 05/13/25 12:57 Pulse Rate 61 05/13/25 12:57 Respiratory Rate 16 05/13/25 12:57 Blood Pressure 103/69 05/13/25 12:57 Pulse Oximetry 98 05/13/25 12:57 MDM Differential Diagnosis Differential Diagnosis: Dog bite with damage with or without fracture, with or without ligamentous injury Imaging Data Radiologist's impression: Ordering Physician: Romluo Blanca APRN Date of Service: 05/13/25 Procedure(s): XR hand RT min 3V Accession Number(s): [id number] cc: Romulo Blanca APRN~ Examination: XR hand RT min 3V Clinical History: DOG BITE, PAIN Comparison: None Technique: 3 views right hand Findings/impression: 1. No radiopaque foreign body. 2. No fracture or other acute bony abnormality Discharge Plan Discharge Clinical Impression: Dog bite Patient Disposition: Home Condition: Stable Instructions: Antibiotic Form Patient Language: [place] Prescriptions: New amoxicillin-pot clavulanate 875-125 mg tablet 1 tablet PO Q12H Qty: 20 0RF ibuprofen 800 mg tablet 800 mg PO TID PRN (Reason: pain) Qty: 30 0RF No Action clonidine HCl 0.1 mg tablet trazodone 50 mg tablet estradiol 1 mg tablet fluoxetine 20 mg capsule amitriptyline 100 mg tablet montelukast [Singulair] 10 mg tablet 10 mg PO DAILY PRN (Reason: allergy symptoms) albuterol sulfate 90 mcg/actuation HFA aerosol inhaler 2 inh INHALATION Q4-6H PRN (Reason: shortness of breath or wheezing) buspirone 15 mg tablet 15 mg PO BID Patient Comments: PT STATES NOT TAKING CURRENTLY lorazepam 1 mg tablet 1 mg PO Q8H PRN (Reason: anxiety) Patient Comments: PT STATES SHE TAKES AT BEDTIME FOR INSOMNIA Follow-up/Referrals: Brett Henao MD [Physician, Family Practice] Stand Alone Forms: Work/School Release IP Time of Disposition: 13:58
[2025-05-13] MEDS: TETANUS,DIPHTHERIA,AC PERTUSSIS ADULT (0.5 ML) BOOSTRIX IM (14:09)
== END 2025-05-13 14:23 | disposition home or self-care (01) ==
PROVIDERS: Emergency Provider Nurse Practitioner
DX: S61.431A Puncture wound without foreign body of right hand, initial encounter (principal); S60.511A Abrasion of right hand, initial encounter; W54.0XXA Bitten by dog, initial encounter; Z23 Encounter for immunization; Z87.891 Personal history of nicotine dependence
CPT/HCPCS: 73130; 90471; 90715; 99213; G0463